=== PATIENT | female | born 1950 | race Two or more races ===

== ENCOUNTER 2025-01-18 11:22 | Inpatient (IN) | payer MEDICARE, MEDICAID, SELFPAY ==
[2025-01-18] VITALS (7 sets, daily range): BP systolic 93–107; BP diastolic 62–79; PULSE 79–102; RESP 15–18; TEMP 36.1–36.7; O2SAT 97–99; BMI 29.6
--- NOTE | 2025-01-18 11:58 | EKG_ITS ---
[facility] Test Date: 2025-01-18 Pat Name: BUTCH Careypartment: Room: - Gender: Female Tax Director: : 1950 Requested By: Nadege Clarke ([facility]) Suman Order Number: [id number] Reading MD: Nadege Clarke ([facility]) Suman Measurements Intervals [place] Rate: 90 P: TX: QRS: -69 QRSD: 203 T: 109 QT: 460 QTc: 564 Interpretive Statements ELECTRONIC VENTRICULAR PACEMAKER ABNORMAL RHYTHM ECG Compared to ECG 08/24/2024 08:41:24 Atrial fibrillation no longer present Aberrant conduction of supraventricular beat(s) no longer present Ventricular premature complex(es) no longer present T-wave abnormality no longer present Possible ischemia no longer present /store/S0/[id number]/ecg/[id number].pdf
--- NOTE | 2025-01-18 11:58 | XR_ITS ---
Examination: PA chest single view TECHNIQUE: Upright PA chest single view Exam date and time: January 10, 2025 at 12:39 PM Comparison August 24, 2024 INDICATIONS: Chronic hypertension diagnosis with weakness beginning one week ago FINDINGS: Moderate enlargement cardiac contour Moderate vascular congestion Subtle septal edema at the lung bases Cardiac leads satisfactory position IMPRESSION: Mild chronic heart failure
--- NOTE | 2025-01-18 11:58 | PD.EDRME ---
Rapid Medical Screening Exam RME Arrival date/time: 01/18/25 11:22 74-year-old female history of CHF, A-fib with RVR, presents to the emergency department with complaints of chest pain, palpitations worsening over 5 days. I have greeted and performed a focused initial assessment of this patient. Initial appropriate labs ordered at this time. A comprehensive ED assessment and evaluation of the patient and analysis of all test and completion of medical decision making process will be conducted by additional ED provider. Chief Complaint: Chest Pain Time Seen by Provider: 01/18/25 11:33
[2025-01-18 12:50] LABS: Basophils % (Auto) 0 % (0-2.5); Eosinophils % (Auto) 1 % (0-10); Hematocrit 37.4 % (36.0-46.0); Hemoglobin 11.9 g/dL (12.0-16.0); Immature Granulocytes % (Auto) 0 % (0-0); Immature Granulocytes Auto 0.01 Thou/mm3 (0.00-0.00); Lymphocytes # (Auto) 0.9 Thou/mm3 (1.0-4.8); Lymphocytes % (Auto) 25 % (10-50); Mean Corpuscular HGB Conc 31.8 g/dl (31.0-37.0); Mean Corpuscular Hemoglobin 30.2 pg (25.0-35.0); Mean Corpuscular Volume 95 fL (80-100); Monocytes # (Auto) 0.3 Thou/mm3 (0.0-0.8); Monocytes % (Auto) 9 % (0-12); Neutrophils # (Auto) 2.3 Thou/mm3 (1.8-7.7); Neutrophils % (Auto) 64 % (37-80); Nucleated Red Blood Cell % 0 /100 WBC (0); Platelet Count 90 Thou/mm3 (140-440); RDW Standard Deviation 48.3 fL (36.4-46.3); Red Blood Count 3.94 Miln/mm3 (4.00-5.20); White Blood Count 3.6 Thou/mm3 (3.6-11.0)
[2025-01-18 13:06] LABS: B-Type Natriuretic Peptide 1333 pg/mL (0-100)
[2025-01-18 13:07] LABS: INR 1.1 (0.9-1.3); Partial Thromboplastin Time 26.3 Seconds (22.0-36.0)
[2025-01-18 13:17] LABS: Alanine Aminotransferase 8 U/L (10-49); Albumin, Serum 3.9 gm/dL (3.4-4.8); Albumin/Globulin Ratio 1.4 (1.2-2.2); Alkaline Phosphatase 95 U/L (46-116); Anion Gap 8 (7-16); Aspartate Amino Transferase 21 U/L (0-34); BUN/Creatinine Ratio 22 Ratio (12-20); Blood Urea Nitrogen 20 mg/dL (9-23); Calcium (Corrected) 9.1 mg/dL (8.5-10.1); Carbon Dioxide 26.6 mMol/L (20.0-31.0); Chloride 106 mMol/L (98-107); Creatinine (Component) 0.9 mg/dL (0.6-1.3); Estimated Creatinine Clearance 50.2 mL/min (>60); Globulin 2.7 gm/dL (2.3-3.5); Glucose 135 mg/dL (74-106); Lipase 39 U/L (12-53); Osmolality,Calculated 285 (275-295); Potassium 3.9 mMol/L (3.4-5.1); Sodium 141 mMol/L (136-145); Total Protein 6.6 gm/dL (5.7-8.2); Troponin I < 0.020 ng/mL (0.0-0.045); eGFR > 60 See Note
[2025-01-18 14:11] LABS: Bilirubin,Total 1.5 mg/dL (0.3-1.2)
--- NOTE | 2025-01-18 19:01 | EDNOTE_ITS ---
ED Chest Pain RME/HPI General Chief Complaint: Chest Pain Stated Complaint: HEART BEATS FAST EATING/SLEEPING ; HAVE PACEMAKER Time Seen by Provider: 01/18/25 11:33 Arrival date/time: 01/18/25 11:22 Limitations: no limitations RME / HPI RME / HPI narrative: 01/18/25 11:22 74-year-old female history of CHF, A-fib with RVR, presents to the emergency department with complaints of chest pain, palpitations worsening over 5 days. I have greeted and performed a focused initial assessment of this patient. Initial appropriate labs ordered at this time. A comprehensive ED assessment and evaluation of the patient and analysis of all test and completion of medical decision making process will be conducted by additional ED provider. DR. SOMMER MAIN ED EVALUATION: A 74-year-old female patient with past medical history of HFrEF, sick sinus syndrome status post pacemaker placement on Eliquis, history of A-fib with RVR, CHF on amiodarone and Eliquis, chronic cough, who presents to the emergency department by car with her with worsening cough that is productive and shortness of breath and increased over the last 1 week. The patient states she saw her primary care physician and her wound/ostomy clinical nurse specialist on the and was told to stop all of her water pills. The patient cannot tell me why the water pills were stopped. She states that she told them that she was having progressively weaknes over the last 1 week. Patient denies chest pain but is more short of breath just walking across the room patient states she occasionally only took the water pill only when her legs swell and in the last week her legs have been more swollen. Patient also states that she has had increased palpitations with eating over the last few days. She feels like her heart is working more after she eats. Patient states that the cough is increased today and that is why she came to the emergency department. Otherwise she is taking her blood thinner. Related Data Home Medications ?Medication ?Instructions ?Recorded ?Confirmed bumetanide 2 mg tablet 2 mg PO QDAY #0 tabs 7 01/18/25 acetaminophen 500 mg tablet 500 mg PO Q8HR PRN pain 01/18/25 apixaban 5 mg tablet (Eliquis) 5 mg PO Q12H 01/18/25 0 01/18/25 benzonatate 200 mg capsule 200 mg PO BID 01/18/2512/23 digoxin 125 mcg (0.125 mg) tablet 0.125 mg PO DAILY 01/18/25 gabapentin 100 mg capsule 100 mg PO .QHS 01/18/2512/23 sacubitril 24 mg-valsartan 26 mg 1 tab PO BID 01/18/25 01/18/25 tablet (Entresto) Previous Rx's ?Medication ?Instructions ?Recorded albuterol sulfate 90 mcg/actuation 2 inh inhalation Q4 H PRN shortness 07/10/24 aerosol inhaler of breath or wheezing #8.5 g shelley Allergies Allergy/AdvReac Type Severity Reaction Status Date / Time Penicillins Allergy Severe Rash Verified 01/18/25 11:26 codeine AdvReac Severe Abdominal Verified 01/18/25 11:26 Pain Review of Systems Review of Systems Systems Reviewed: All systems reviewed, normal except as documented Past Medical History Past Medical History NEUROLOGIC: Negative Neurological Disorders or Seizures CARDIAC: Positive Cardiac Disorders, Atrial Fibrillation, Congestive Heart Failure, Edema and Varicose Veins; Negative Cellulitis or Hypertension RESPIRATORY: Positive Pneumonia; Negative Chronic Obstructive Pulmonary Disease (COPD), Asthma, Tuberculosis or Sleep Apnea GASTROINTESTINAL: Positive Gastrointestinal Disorders, Gall Bladder Disease, Colorectal Cancer, Hiatal Hernia and Obesity; Negative Hepatitis GENITOURINARY: Positive Inguinal Hernia; Negative Genitourinary Disorders or Renal Disease REPRODUCTIVE: Positive Previous Pregnancies MUSCULOSKELETAL: Positive Musculoskeletal Disorders; Negative Arthritis, Gout, Scoliosis, Fibromyalgia or Fractures ENT: Positive Cataracts ENDOCRINE: Negative Endocrine Disorders, Diabetes Mellitus Type 1 or Diabetes Mellitus Type 2 HEMATOLOGIC: Negative Blood Disorders or Sickle Cell Disease OTHER HISTORY: Positive Cancer and Colorectal Cancer; Negative Hospitalization, Autoimmune Disease, Shingles, Falls, Blood Transfusions, Blood Transfusion Reaction, Anesthesia Reactions, Chemotherapy, Radiation Therapy, MRSA, Chicken Pox, Measles or Mumps Family History FAMILY HISTORY: Positive Family Surgery; Negative Family Psychiatric Problems, Family Respiratory Disorders, Family Cardiac Disorders, Family Gastrointestinal Problems, Family Cancer or Family Anesthesia Reaction Surgical History SURGICAL: Positive Cardiac Surgery, Pacemaker, Abdominal Surgery, Tubal Ligation and Section Social History SMOKING STATUS: Never smoker SECOND HAND EXPOSURE: No SUBSTANCE USE: does not use ALCOHOL: Never ED Exam Narrative Physical exam: Patient sitting in the bed coughing in minimal distress. Patient with some audible wheezing. General Limitations: Present no limitations General appearance: Present alert Head Head exam: Present atraumatic Eye Eye exam: Present normal appearance ENT ENT exam: Present normal exam, normal oropharynx and mucous membranes moist Neck Neck exam: Present normal inspection, full ROM and trachea midline Chest Chest inspection: Present normal inspection and symmetric chest wall rise Respiratory Respiratory exam: Present other (Decreased breath sounds at the bases.) Cardiovascular Cardiovascular exam: Present regular rate, normal rhythm and normal heart sounds Abdominal Exam Abdominal exam: Present soft and normal bowel sounds Extremities Exam Extremities exam: Present normal inspection and full ROM (2+ pitting edema to the by lateral legs) Back Exam Back exam: Present normal inspection and full ROM Neurological Exam Neurological exam: Present alert, oriented X3 and CN II-XII intact Psychiatric Psychiatric exam: Present normal affect and normal mood Skin Skin exam: Present warm, dry, intact and normal color Course Course Course Narrative: Patient placed in the room. All labs Chest x-ray obtained for chief complaint of shortness of breath and cough. Please see HPI and review of systems further indications for chest x-ray Quality Measures none Orders Category Date Time Status [employer] Agent STAT Care 01/18/25 11:58 Active Continuous Pulse Oximetry ONCE Care 01/18/25 11:58 Completed EKG (ED ONLY) *Do not use* NOW Care 01/18/25 11:58 Completed Insert IV STAT Care 01/18/25 11:58 Active Miscellaneous Nursing Order X1 Care 01/18/25 18:59 Active EKG (ED Only) Stat Exams 01/18/25 11:58 Draft XR chest 1V portable Stat Exams 01/18/25 11:58 Completed B-Type Natriuretic Peptide Stat Lab 01/18/25 11:26 Completed CBC Stat Lab 01/18/25 11:26 Completed Comprehensive Metabolic Panel Stat Lab 01/18/25 11:26 Completed Lipase Stat Lab 01/18/25 11:26 Completed Magnesium Stat Lab 01/18/25 11:26 Completed Partial Thromboplastin Time Stat Lab 01/18/25 11:26 Completed Prothrombin Time with INR Stat Lab 01/18/25 11:26 Completed Troponin I Stat Lab 01/18/25 11:26 Completed Furosemide Inj [Lasix Inj] Med 01/18/25 18:58 Discontinued 40 mg IVP X1 ONE Oxygen Delivery NOW RT 01/18/25 11:58 Active Vital Signs Vital signs: Vital Signs Temperature 98.0 F 01/18/25 11:57 Pulse Rate 102 H 01/18/25 11:57 Respiratory Rate 17 01/18/25 11:57 Blood Pressure 97/66 01/18/25 11:57 Pulse Oximetry (%) 97 01/18/25 11:57 Oxygen Delivery Method Room Air 01/18/25 11:57 Procedures -ED EKG Interpretation #1: Date of EK01/18/25 Time of EK:04 Rate: 90 Interpretation: Interpreted by me Additional EKG comment: paced rhythm, rate 90, QTc 564 Chest Pain MDM Narrative MDM Narrative:: 74-year-old female with history of CHF, A-fib with RVR, on amiodarone and Eliquis, status post pacemaker in the past for sick sinus syndrome coming in with shortness of breath and cough and has stopped her medications Lasix and Bumex by her primary wound/ostomy clinical nurse specialist this last week. Patient is presenting with worsening shortness of breath. Following the emergency department the patient had a chest x-ray that shows some mild congestion. The patient's blood pressure was slightly low at 97/66 initially on repeat is 101/79. Hemoglobin is 11, white blood cell count is 3.6 and normal. This is interpreted and reviewed by me. BNP is elevated at 133. Troponin x 1 is negative and otherwise lipase is negative. Differential diagnosis includes CHF exacerbation, worsening CHF, underlying pneumonia, worsening diastolic or systolic function. Mary Ellen East am scribing for and in the presence of Dr. Sommer. Patient data External records reviewed:: [facility] previous records (Reviewed last ED visit dated 08/24/24, discharged with the following: Bronchitis) Clinical information provided by:: patient Social determinants that could affect healthcare access:: none Patient has the following chronic illnesses:: HFrEF, sick sinus syndrome status post pacemaker placement on Eliquis, history of A-fib with RVR, CHF on amiodarone and Eliquis, chronic cough How is presenting disease/condition affected by chronic disease/condition?: exacerbated by Evaluation data The following diagnostics were reviewed and interpreted by me:: lab results, radiology exam(s) and EKG tracing(s) Lab and/or radiology exams considered but not ordered:: none Interpretation Summary: See above under MDM narrative. RADIOLOGY Procedure(s): XR chest 1V portable Accession Number(s): [id number] cc: Hardik Gloria MD; Selvin Méndez MD; Tricia ([facility])Nadege~ Examination: PA chest single view TECHNIQUE: Upright PA chest single view Exam date and time: January 10, 2025 at 12:39 PM Comparison August 24, 2024 INDICATIONS: Chronic hypertension diagnosis with weakness beginning one week ago FINDINGS: Moderate enlargement cardiac contour Moderate vascular congestion Subtle septal edema at the lung bases Cardiac leads satisfactory position IMPRESSION: Mild chronic heart failure Dictated By: Selvin Méndez MD Medications / Prescriptions Medications or Prescriptions considered but not ordered:: none Medication administrations:: Medication Administration History Acetaminophen (Acetaminophen 325 Mg Tablet) 650 mg PO Q6H PRN PRN Reason: Fever >101.5 Stop: 02/17/25 19:30 Apixaban (Apixaban 2.5 Mg Tablet) 5 mg PO BID [facility] Stop: 02/17/25 20:59 Last Admin: 01/18/25 20:36 Dose: 5 mg Documented By: RUFINA Dapagliflozin (Dapagliflozin Propanediol 5 Mg Tablet) 5 mg PO QAM [facility] Stop: 02/18/25 08:59 Digoxin (Digoxin 0.125 Mg Tablet) 0.125 mg PO QDAY [facility] Stop: 02/18/25 08:59 Furosemide (Furosemide Inj 10 Mg/Ml Vial 2 Ml) 20 mg IVP BID [facility] Stop: 02/18/25 08:59 Gabapentin (Gabapentin 100 Mg Capsule) 100 mg PO HS [facility] Stop: 02/17/25 21:29 Sennosides (Senna Tablet) 1 tab PO QDAY [facility]; Protocol Stop: 02/18/25 08:59 Discontinued Medications Furosemide (Furosemide Inj 10 Mg/Ml 4ml Vial) 40 mg IVP X1 ONE Stop: 01/18/25 18:59 Last Admin: 01/18/25 20:01 Dose: Not Given Documented By: RUFINA Non-Admin Reason: Vital Signs Furosemide (Furosemide Inj 10 Mg/Ml Vial 2 Ml) 20 mg IVP QDAY [facility] Stop: 02/18/25 08:59 Furosemide (Furosemide Inj 10 Mg/Ml Vial 2 Ml) 20 mg IVP X1 ONE Stop: 01/18/25 20:19 Last Admin: 01/18/25 20:37 Dose: 20 mg Documented By: RUFINA Furosemide (Furosemide Inj 10 Mg/Ml Vial 2 Ml) 20 mg IVP X1 ONE Stop: 01/18/25 20:58 Last Admin: 01/18/25 21:37 Dose: 20 mg Documented By: RUFINA see above Consultations Consultation(s) initiated? (list below): Yes Consultation #1 (Physician, Specialty, Details): Discussed test HPI, PMHx, lab, radiology results and/or management with hospitalist. Will admit for further evaluation and management. Accepts patient for admission. Time: 19:30 Diagnosis Chest Pain Differential Diagnosis: atypical chest pain, costochondritis, chest pain and biliary colic Most likely diagnosis given after review of the tests above:: Acute on chronic Systolic Heart Failure Atrial Fibrillation Admission Indicated Admission indicated?: indicated Admission Request Was there a request for admission?: Yes Admission Attestation Admission request attestation: Discussed case with [] from Hospitalist service regarding admission. Discussed patients ED course, exam findings, labs, and radiology results. The Hospitalist [agrees,declines] to accept the patient for admission. Disposition Plan Disposition Plan: Admit Discharge Plan Plan Patient Disposition: Admit Acute Care w/in Hospital Problem List Clinical Impression: Acute on chronic systolic heart failure, Atrial fibrillation
--- NOTE | 2025-01-18 19:39 | PD.EVENT ---
Documentation for date of: 01/18/25 Event Note Event Note: A 74 y/o female presented to the ER with the chief complaint of palpitations after eating. The patient reported experiencing episodes of rapid heart beats that began five days ago, occurring specifically after meals. The most recent episode occurred after eating cereal, prompting her to contact her web designer developer, who advised her to come to the ER. She endorsed associated fatigue during these episodes but denied chest pain and dyspnea. She stated she stopped taking her diuretic four days ago due to weakness. She also reported a chronic cough ongoing for two years, previously requiring hospitalization and labeled as a chronic condition. She denied fever and noted no worsening of the cough. She has a history of intermittent lower extremity swelling that improves with diuretics but recurs every few days. The patient has a history of a-fib, severe systolic heart failure, with prior echocardiogram findings of a severely dilated LV, global hypokinesis, and EF 30?35%. She has a pacemaker placed several years ago and is scheduled for evaluation in January for possible battery replacement. She denies a history of HTN, DM, CAD, ID, smoking, alcohol, or drug use. She has had an angiogram in the past, which showed no coronary obstruction. No family history of heart disease was reported. Medications include Acetaminophen, Gabapentin, Benzonatate, Digoxin, Bumetanide, Entresto, and Eliquis. In the ER, vital signs recorded as temp 98.0 F, HR 102, RR 17, BP 97/66 mmHg, GCS 15. Lab revealed WBC 3.6 (L), Hb 11.9, Plt 90 (L), INR 1.1, Na 141, K 3.9, BUN 20, Cr 0.9, Glucose 135, Troponin <0.02, BNP 1333 (H). CXR showed mild chronic heart failure. EKG demonstrated pacemaker rhythm. She is going to be admitted for further treatment and evaluation. Acute on chronic Systolic Heart Failure (EF 30?35%) #Assessment: - Severe LV systolic dysfunction (EF 30?35%, global hypokinesis, severely dilated LV) - Chronic heart failure with intermittent LE edema, chronic cough, and recent noncompliance with diuretics - Hypotension (BP 97/66), elevated BNP (1333), mild CHF on CXR - On guideline-directed medical therapy (GDMT): Entresto, Digoxin, Bumetanide - Recent cessation of diuretic likely contributed to symptom exacerbation #Plan: - Repeat transthoracic echocardiogram to reassess EF and structural changes - Hold Entresto temporarily due to hypotension - Continue Digoxin for rate control and inotropic support - Start IV Furosemide - Initiate SGLT2 inhibitor, monitor for volume status and renal function - Monitor I/Os, daily weights, and electrolyte panels - Cardiology to evaluate for further optimization Atrial Fibrillation #Assessment: - History of AF with pacemaker in place, currently in paced rhythm - [id number] score = 3 (Age >75, female sex, heart failure) - No acute rhythm disturbance on EKG today #Plan: - Continue Apixaban for stroke prophylaxis - Continue Digoxin for rate control (already part of HF regimen) - Monitor telemetry for arrhythmic episodes
[2025-01-18] MEDS: APIXABAN 2.5 MG TABLET 5 MG PO (20:36)
[2025-01-18] MEDS: FUROSEMIDE INJ 10 MG/ML VIAL 2 ML 20 MG IVP ×2 (20:37→21:37)
--- NOTE | 2025-01-18 22:06 | ESHP_ITS ---
Documentation for date of: 01/18/25 HPI History of Present Illness Chief complaint: Palpitation History of present illness: HPI:A 74-year-old female patient with past history of A-fib on Eliquis, HFrEF EF 30 to 35% in 2022, sick sinus syndrome status post pacemaker placement, was brought to the ED due to palpitation and shortness of breath for the past 5 days. She reported also her symptoms associated with productive cough which produces white phlegm. Patient reported that recently her doctor recommended that she has to stop her water pills. After she stopped her water pill she reported worsening shortness of breath, orthopnea, paroxysmal nocturnal dyspnea associated with palpitation. Her palpitation worsened over the past 2 days and she felt dizzy which made her come to the ED. Patient denied any chest pain, denied any fever, chills, and denied any history of sick contact. Patient denied any lower extremity swelling, denied any urine tract symptoms. And review of other system patient reported that she has been having chronic constipation in which she has to use laxatives and also reported lower abdominal discomfort that is constant for the past 1 year. On questioning she reported that she had a colonoscopy 5 years ago and she said that it was normal. Her home medications include Tylenol as needed, albuterol, apixaban 5 mg twice daily, benzonatate, Bumex 2 mg p.o. daily, Digoxin 0.125 p.o. daily, Gabapentin 100 mg nightly, Entresto 1 tab twice daily On presentation her blood pressure was 97/66, pulse rate of 102, respiratory rate of 17, temperature of 98.0, O2 saturation 97. Hemoglobin 11.9, coagulation panel within normal limits, CMP showed T. bili of 1.5, BNP of 1333. Serum creatinine was within normal limit of 0.9, potassium 3.9, magnesium 2.0. Chest x-ray was positive for mild chronic heart failure PMH: As above Social hx: Alcohol: Denied Tobacco: Denied Illicit drugs: Denied Allergies: Penicillins, codeine Review of Systems Review of Systems Systems Reviewed: All systems reviewed, normal except as documented Exam Vital Signs Temp Pulse Resp BP Pulse Ox O2 Del Method 98.1 F 98 18 107/65 99 Room Air 01/18/25 18:48 01/18/25 21:37 01/18/25 18:48 01/18/25 21:37 01/18/25 18:48 01/18/25 18:48 Narrative Exam GEN: AOx3, able to speak full sentences, in semisitting position. HEENT: NC/AC, oral mucosa moist, neck supple. CVS: RRR, muffled S1 -S2 present, elevated JVD. RESP: Fine basal crepitations bilaterally. GI: Soft, mild abdominal discomfort on palpation in the hypogastric area, NBS. MSK: Able to move all 4 limbs, trace lower extremity edema. SKIN: Warm and dry. 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 Results: Labs 01/18/25 11:26 01/18/25 11:26 Labs: Short CBC 01/18/25 Range/Units 11:26 WBC 3.6 (3.6-11.0) Thou/mm3 Hgb 11.9 L (12.0-16.0) g/dL Hct 37.4 (36.0-46.0) % Plt Count 90 L (140-440) Thou/mm3 BMP 01/18/25 11:26 Sodium 141 Potassium 3.9 Chloride 106 Carbon Dioxide 26.6 BUN 20 Creatinine 0.9 Glucose 135 H Calcium 9.0 Cardiac Enzymes 01/18/25 Range/Units 11:26 Troponin I < 0.020 (0.0-0.045) ng/mL Liver Function 01/18/25 Range/Units 11:26 Total Bilirubin 1.5 H (0.3-1.2) mg/dL AST 21 (0-34) U/L ALT 8 L (10-49) U/L Alkaline Phosphatase 95 (46-116) U/L Albumin 3.9 (3.4-4.8) gm/dL Quality Measures Quality Measures VTE prophylaxis Advance care planning discussed with:: patient and child Medications Home Medications and Allergies Home Medications ?Medication ?Instructions ?Recorded ?Confirmed ?Type bumetanide 2 mg tablet 2 mg PO QDAY #0 tabs 7 01/18/25 History acetaminophen 500 mg tablet 500 mg PO Q8HR PRN pain 01/18/25 History apixaban 5 mg tablet (Eliquis) 5 mg PO Q12H 01/18/25 0 01/18/25 History benzonatate 200 mg capsule 200 mg PO BID 01/18/2512/23 History digoxin 125 mcg (0.125 mg) tablet 0.125 mg PO DAILY 01/18/25 History gabapentin 100 mg capsule 100 mg PO .QHS 01/18/2512/23 History sacubitril 24 mg-valsartan 26 mg 1 tab PO BID 01/18/25 01/18/25 History tablet (Entresto) Allergies Allergy/AdvReac Type Severity Reaction Status Date / Time Penicillins Allergy Severe Rash Verified 01/18/25 11:26 codeine AdvReac Severe Abdominal Verified 01/18/25 11:26 Pain Visit Medications Acetaminophen (Acetaminophen 325 Mg Tablet) 650 mg PO Q6H PRN PRN Reason: Fever >101.5 Stop: 02/17/25 19:30 Apixaban (Apixaban 2.5 Mg Tablet) 5 mg PO BID [facility] Stop: 02/17/25 20:59 Last Admin: 01/18/25 20:36 Dose: 5 mg Dapagliflozin (Dapagliflozin Propanediol 5 Mg Tablet) [facility] Stop: 02/18/25 08:59 Digoxin (Digoxin 0.125 Mg Tablet) 0.125 mg PO QDAY [facility] Stop: 02/18/25 08:59 Furosemide (Furosemide Inj 10 Mg/Ml Vial 2 Ml) 20 mg IVP BID [facility] Stop: 02/18/25 08:59 Gabapentin (Gabapentin 100 Mg Capsule) 100 mg PO HS [facility] Stop: 02/17/25 21:29 Sennosides (Senna Tablet) 1 tab PO QDAY [facility]; Protocol Stop: 02/18/25 08:59 Discontinued Medications Furosemide (Furosemide Inj 10 Mg/Ml 4ml Vial) 40 mg IVP X1 ONE Stop: 01/18/25 18:59 Last Admin: 01/18/25 20:01 Dose: Not Given Furosemide (Furosemide Inj 10 Mg/Ml Vial 2 Ml) 20 mg IVP QDAY [facility] Stop: 02/18/25 08:59 Furosemide (Furosemide Inj 10 Mg/Ml Vial 2 Ml) 20 mg IVP X1 ONE Stop: 01/18/25 20:19 Last Admin: 01/18/25 20:37 Dose: 20 mg Furosemide (Furosemide Inj 10 Mg/Ml Vial 2 Ml) 20 mg IVP X1 ONE Stop: 01/18/25 20:58 Last Admin: 03/28/25 21:37 Dose: 20 mg Assessment & Plan Plan Summary: A 74-year-old female patient with past history of A-fib on Eliquis, HFrEF EF 30 to 35% in 2022, sick sinus syndrome status post pacemaker placement, was brought to the ED due to palpitation and shortness of breath for the past 5 days. Patient was admitted for CHF exacerbation workup. #Acute HFrEF exacerbation #History of sick sinus syndrome status post pacemaker placement #History of A-fib with RVR Patient recently stopped her diuretics as per her PCP recommendations. She does not know the reason behind the stopping the medication. She mentions that she has orthopnea and cannot lay flat. And evaluation patient was found to have heart rate of 105, blood pressure of 97/75. Examination showed elevated JVD. Patient was unable to lay flat because of the shortness of breath. Last echo from 2022 showed LV severely dilated. Severe systolic dysfunctio. Global hypokinesis wall motion. Estimated EF 30-35% BNP today is 1333 Plan ? Admit patient to telemetry ? Start the patient on Lasix 40 mg IV daily ? Consider consulting cardiology ? Strict in and out ? Fluid restriction to 1500 mL/day ? Continue to monitor patient's blood pressure as it in the soft side at this time ? Consider resuming goal-directed medical therapy of the CHF including Entresto ? Sent for echocardiogram ? Resume home medication Eliquis 5 mg p.o. daily ? Resume home medication digoxin 0.125 mg p.o. daily #Hyperbilirubinemia Total bilirubin was found to be 1.5. Hemoglobin 11.9 which is borderline normal. Liver enzymes are within normal limits, alkaline phosphatase within normal limits also. Most likely secondary to liver congestion Plan ? Daily monitoring Hospital Maintenance: FEN: Cardiac diet DVT ppx: Eliquis GI ppx: Protonix IV lines: PIV Park: None Code status: Full code Dispo: Telemetry Patient's plan and care discussed with my attending, Dr. Jeremi Mcfarland MD Internal Medicine PGY-2 Attending Provider Attestation/Addendum Pt was evaluated and plan formulated together with the housestaff team. I have reviewed the residents note above and agree with most of its content. Please refer to the residents note for additional details.
[2025-01-18] MEDS: GABAPENTIN 100 MG CAPSULE PO (22:31)
[2025-01-19] VITALS (14 sets, daily range): BP systolic 81–105; BP diastolic 52–74; PULSE 56–127; RESP 17–93; TEMP 36.2–36.8; O2SAT 95–96; BMI 29.3
--- NOTE | 2025-01-19 | XR_ITS ---
Examination: Abdomen sonogram, complete Date and time of exam: January 19, 2025 at 0155 hours INDICATIONS: Hematuria on laboratory examination today. Technique: Multiple real-time grayscale transabdominal sonographic images of the abdomen have been obtained. Findings: Absent gallbladder Common bile duct 0.9 cm no stones Pancreatic head 2.7 cm Aorta nonenlarged Liver 14.3 cm fatty infiltration irregular contour Normal hepatopedal portal venous on Patent IVC Right kidney 10.6 cm cortex 2.3 cm Left kidney 10.3 cm cortex 1.5 cm Moderate bilateral renal parenchymal scar formation No renal calculi or solid renal mass lesion Spleen 7.8 cm IMPRESSION: Moderate bilateral renal parenchymal scar formation No renal calculi, no solid renal mass lesion, no hydronephrosis
--- NOTE | 2025-01-19 03:52 | PRELIM_ITS ---
Ultrasound Abdomen with Doppler and wave Doppler spectral analysis. January 19, 2025 0155 hours Clinical history: Hematuria Technique: Grayscale and color flow images of the abdomen are provided. Hepatic and portal veins were also imaged with color flow images. Comparison: None available at the time of this report. Findings: The liver demonstrates increased echogenicity. Mild irregular liver margins. No intrahepatic biliary ductal dilatation. Status post cholecystectomy. The common bile duct is dilated in caliber at 9.3 mm. No free fluid is demonstrated on the submitted images. The pancreas is unremarkable to the extent visualized. The right kidney measures 10.6 cm. The left kidney measures 10.3 cm. There is no hydronephrosis and the corticomedullary differentiation is maintained. The spleen is normal measuring 7.8 cm in length. The abdominal aorta and inferior vena cava to the extent visualized are within normal limits. The portal vein is patent with hepatopetal flow and normal wave Doppler spectral analysis. The hepatic veins are patent with normal wave Doppler spectral analysis. The inferior vena cava is patent with normal wave Doppler spectral analysis. Impression: Dilated CBD in status post cholecystectomy, probably functional. If choledocholithiasis is clinically suspected consider correlation with right upper quadrant ultrasound. Liver steatosis and possible cirrhosis. Report Electronically Signed By: Andrea Urias 01/19/2025 3:51:21 AM [EST]
[2025-01-19 06:03] LABS: Basophils % (Auto) 0 % (0-2.5); Eosinophils # (Auto) 0.1 Thou/mm3 (0.0-0.5); Eosinophils % (Auto) 1 % (0-10); Hematocrit 35.2 % (36.0-46.0); Hemoglobin 11.9 g/dL (12.0-16.0); Immature Granulocytes % (Auto) 0 % (0-0); Immature Granulocytes Auto 0.01 Thou/mm3 (0.00-0.00); Lymphocytes # (Auto) 1.3 Thou/mm3 (1.0-4.8); Lymphocytes % (Auto) 25 % (10-50); Mean Corpuscular HGB Conc 33.8 g/dl (31.0-37.0); Mean Corpuscular Hemoglobin 30.4 pg (25.0-35.0); Mean Corpuscular Volume 90 fL (80-100); Monocytes # (Auto) 0.5 Thou/mm3 (0.0-0.8); Monocytes % (Auto) 10 % (0-12); Neutrophils # (Auto) 3.4 Thou/mm3 (1.8-7.7); Neutrophils % (Auto) 64 % (37-80); Nucleated Red Blood Cell % 0 /100 WBC (0); Platelet Count 100 Thou/mm3 (140-440); RDW Standard Deviation 46.1 fL (36.4-46.3); Red Blood Count 3.91 Miln/mm3 (4.00-5.20); White Blood Count 5.3 Thou/mm3 (3.6-11.0)
[2025-01-19 06:31] LABS: Alanine Aminotransferase 8 U/L (10-49); Albumin, Serum 3.8 gm/dL (3.4-4.8); Albumin/Globulin Ratio 1.4 (1.2-2.2); Alkaline Phosphatase 102 U/L (46-116); Anion Gap 8 (7-16); Aspartate Amino Transferase 24 U/L (0-34); BUN/Creatinine Ratio 25 Ratio (12-20); Bilirubin,Total 1.2 mg/dL (0.3-1.2); Blood Urea Nitrogen 20 mg/dL (9-23); Calcium 9.2 mg/dL (8.3-10.6); Calcium (Corrected) 9.4 mg/dL (8.5-10.1); Carbon Dioxide 28.4 mMol/L (20.0-31.0); Chloride 106 mMol/L (98-107); Creatinine (Component) 0.8 mg/dL (0.6-1.3); Estimated Creatinine Clearance 56.5 mL/min (>60); Globulin 2.7 gm/dL (2.3-3.5); Glucose 89 mg/dL (74-106); Osmolality,Calculated 284 (275-295); Phosphorous 5.2 mg/dL (2.4-5.1); Potassium 3.6 mMol/L (3.4-5.1); Sodium 142 mMol/L (136-145); Total Protein 6.5 gm/dL (5.7-8.2); eGFR > 60 See Note
[2025-01-19] MEDS: ACETAMINOPHEN 325 MG TABLET 650 MG PO ×2 (06:40→16:36)
[2025-01-19] MEDS: DIGOXIN 0.125 MG TABLET PO ×2 (09:13→09:16)
[2025-01-19] MEDS: DAPAGLIFLOZIN PROPANEDIOL 5 MG TABLET PO (09:13)
[2025-01-19] MEDS: SENNA TABLET 1 TAB PO (09:15)
[2025-01-19] MEDS: FUROSEMIDE INJ 10 MG/ML VIAL 2 ML 20 MG IVP (09:15)
[2025-01-19] MEDS: APIXABAN 2.5 MG TABLET 5 MG PO ×2 (09:15→20:30)
--- NOTE | 2025-01-19 12:05 | PD.IMCONS ---
HPI Data of Consult Requesting Physician: Filemon Blood MD Primary Care Provider: Hardik Gloria MD Consult Narrative History of present illness: This is a 74-year-old female patient with past history of A-fib on Eliquis, HFrEF EF 30 to 35% in 2022, sick sinus syndrome status post pacemaker placement, pt was admitted with cough and sputum no chest pain /c/o of sob cc:: cc: Filemon Blodo MD Meds Home Medications and Allergies Home Medications ?Medication ?Instructions ?Recorded ?Confirmed ?Type bumetanide 2 mg tablet 2 mg PO QDAY #0 tabs 03/06/17 01/18/25 History acetaminophen 500 mg tablet 500 mg PO Q8HR PRN pain 01/18/25 01/18/25 History apixaban 5 mg tablet (Eliquis) 5 mg PO Q12H 01/18/25 01/18/25 History benzonatate 200 mg capsule 200 mg PO BID 01/18/25 01/18/25 History digoxin 125 mcg (0.125 mg) tablet 0.125 mg PO DAILY 01/18/25 01/18/25 History gabapentin 100 mg capsule 100 mg PO .QHS 01/18/25 01/18/25 History sacubitril 24 mg-valsartan 26 mg 1 tab PO BID 01/18/25 01/18/25 History tablet (Entresto) Allergies Allergy/AdvReac Type Severity Reaction Status Date / Time Penicillins Allergy Severe Rash Verified 01/18/25 11:26 codeine AdvReac Severe Abdominal Verified 01/18/25 11:26 Pain Exam Vital Signs Temp Pulse Resp BP Pulse Ox O2 Del Method 98.1 F 95 19 100/64 95 Room Air 01/19/25 09:17 01/19/25 09:16 01/19/25 08:00 01/19/25 09:16 01/19/25 08:00 01/19/25 08:00 Routine HEENT Exam Head: Present normocephalic and atraumatic Eye: Present EOMI and PERRL ENT: Present mucous membranes moist Routine Neck Exam Neck: Present supple and trachea midline Routine Respiratory Exam Respiratory: Present chest non-tender, lungs clear, normal breath sounds and no resp distress Routine Cardiovascular Exam Cardiovascular: Present RRR Routine Abdominal Exam Abdominal: Present soft and normoactive bowel sounds Routine Extremities Exam Extremities: Present full ROM Routine Skin Exam Skin: Present intact, dry and warm Routine Neurological Exam Neurological: Present alert, oriented X3 and CN II-XII intact Routine Psychiatric Exam Psychiatric: Present normal affect and normal thought process Results Labs 01/19/25 04:36 01/19/25 04:36 Labs: Short CBC 01/18/25 01/19/25 Range/Units 11:26 04:36 WBC 3.6 5.3 D (3.6-11.0) Thou/mm3 Hgb 11.9 L 11.9 L (12.0-16.0) g/dL Hct 37.4 35.2 L (36.0-46.0) % Plt Count 90 L 100 L (140-440) Thou/mm3 BMP 01/18/25 01/19/25 11:26 04:36 Sodium 141 142 Potassium 3.9 3.6 Chloride 106 106 Carbon Dioxide 26.6 28.4 BUN 20 20 Creatinine 0.9 0.8 Glucose 135 H 89 Calcium 9.0 9.2 Cardiac Enzymes 01/18/25 01/19/25 Range/Units 11:26 04:36 Troponin I < 0.020 0.020 (0.0-0.045) ng/mL Liver Function 01/18/25 01/19/25 Range/Units 11:26 04:36 Total Bilirubin 1.5 H 1.2 (0.3-1.2) mg/dL AST 21 24 (0-34) U/L ALT 8 L 8 L (10-49) U/L Alkaline Phosphatase 95 102 (46-116) U/L Albumin 3.9 3.8 (3.4-4.8) gm/dL Assessment and Plan Assessment and plan (1) Atrial fibrillation: Status: Acute (2) Acute on chronic systolic heart failure: Status: Acute (3) Acute exacerbation of congestive heart failure: Status: Acute (4) Acute upper respiratory infection: Status: Acute (5) Acute exacerbation of CHF (congestive heart failure): Status: Acute Additional Assessment & Plan Additional Plan: resume home meds conitinue anticoagulation
--- NOTE | 2025-01-19 13:13 | ESPR_ITS ---
<Statement entered by Shun Soto MD - 01/19/25 17:12> I have discussed and was present for the essential components of the history, physical examination, diagnosis, and treatment plan with the resident. I agree with the patient's care as documented by the resident and amended herein by me. Shun Soto MD FACP. Documentation for date of: 01/19/25 Subjective Subjective Interval history: Patient seen and examined. Admitted overnight. Complained of palpitations overnight. Denies any other complaints. Exam Vital Signs Temp Pulse Resp BP Pulse Ox O2 Del Method 98.2 F 116 H 20 81/62 L 96 Room Air 01/19/25 12:00 01/19/25 12:00 01/19/25 12:00 01/19/25 12:00 01/19/25 12:00 01/19/25 12:00 Narrative Exam Constitutional: AOx3, able to speak full sentences HEENT: NC/AT, PERRLA, oral mucosa moist, neck supple CVS: RRR, S1-S2 present, no murmurs RESP: CTAB GI: non distended, non tender to palpation, NBS MSK: full ROM, 2+ BLE peripheral edema, peripheral pulses present Skin: warm and dry, no rashes Neuro: backroom associate II-XII grossly intact. Sensation grossly intact. Objective Labs 01/19/25 04:36 01/19/25 04:36 Labs: Laboratory Results - last 24 hr 01/18/25 01/19/25 11:26 04:36 WBC 5.3 D RBC 3.91 L Hgb 11.9 L Hct 35.2 L MCV 90 MCH 30.4 MCHC 33.8 RDW Std Deviation 46.1 Plt Count 100 L Neut % (Auto) 64 Lymph % (Auto) 25 Harper % (Auto) 10 Eos % (Auto) 1 Baso % (Auto) 0 Neut # (Auto) 3.4 Lymph # (Auto) 1.3 Harper # (Auto) 0.5 Eos # (Auto) 0.1 Baso # (Auto) 0.0 Immature Gran # (Auto) 0.01 H Absolute Nucleated RBC 0.00 Immature Gran % 0 Nucleated RBC % 0 Sodium 141 142 Potassium 3.9 3.6 Chloride 106 106 Carbon Dioxide 26.6 28.4 Anion Gap 8 8 BUN 20 20 Creatinine 0.9 0.8 Estim Creat Clear Calc 50.2 L 56.5 L eGFR > 60 > 60 BUN/Creatinine Ratio 22 H 25 H Glucose 135 H 89 Calculated Osmolality 285 284 Calcium 9.0 9.2 Corrected Calcium 9.1 9.4 Phosphorus 5.2 H Magnesium 2.0 Total Bilirubin 1.5 H 1.2 AST 21 24 ALT 8 L 8 L Alkaline Phosphatase 95 102 Troponin I < 0.020 0.020 B-Natriuretic Peptide 1333 H* Total Protein 6.6 6.5 Albumin 3.9 3.8 Globulin 2.7 2.7 Albumin/Globulin Ratio 1.4 1.4 Lipase 39 Quality Measures Quality Measures VTE prophylaxis Advance care planning discussed with:: patient Assessment & Plan Assessment Current Active Medications: Generic Name Dose Route Start Last Admin Trade Name Freq PRN Reason Stop Dose Admin Acetaminophen 650 mg 01/18/25 19:31 01/19/25 06:40 Acetaminophen 325 Mg Tablet PO 02/17/25 19:30 650 mg Q6H PRN Administration Fever >101.5 Apixaban 5 mg 01/18/25 21:00 01/19/25 09:15 Apixaban 2.5 Mg Tablet PO 02/17/25 20:59 5 mg BID TEAGAN Administration Dapagliflozin 5 mg 01/19/25 09:00 01/19/25 09:13 Dapagliflozin Propanediol 5 Mg Tablet PO 02/18/25 08:59 5 mg QAM TEAGAN Administration Digoxin 0.125 mg 01/19/25 09:00 01/19/25 09:16 Digoxin 0.125 Mg Tablet PO 02/18/25 08:59 0.125 mg QDAY TEAGAN Administration Furosemide 20 mg 01/19/25 09:00 01/19/25 09:15 Furosemide Inj 10 Mg/Ml Vial 2 Ml IVP 02/18/25 08:59 20 mg BID TEAGAN Administration Gabapentin 100 mg 01/18/25 21:30 01/18/25 22:31 Gabapentin 100 Mg Capsule PO 02/17/25 21:29 100 mg HS TEAGAN Administration Pharmacy Consult 1 each 01/19/25 09:00 Pharmacy To Consult Pneumovacc XX 02/18/25 08:59 PRN PRN CONSULT Pneumococcal Polyvalent Vaccine 0.5 ml 01/22/25 09:30 Pneumoc 20-Caryn Conj-Dip Crm/Pf 0.5 Ml Syringe IMi 01/22/25 09:31 .ONCE ONE Sennosides 1 tab 01/19/25 09:00 01/19/25 09:15 Senna Tablet PO 02/18/25 08:59 1 tab QDAY TEAGAN Administration Protocol Plan Summary: A 74-year-old female patient with past history of A-fib on Eliquis, HFrEF EF 30 to 35% in 2022, sick sinus syndrome status post pacemaker placement, was brought to the ED due to palpitation and shortness of breath for the past 5 days. Patient was admitted for CHF exacerbation workup. #Acute HFrEF exacerbation #Palpitations #History of sick sinus syndrome status post pacemaker placement #History of A-fib with RVR Assessment: Patient recently stopped her diuretics as per her PCP recommendations. Etiology of the palpitations are likely due to her SSS, patient also revealed that she needed her pacement replaced due to possible low battery life next month. patient was found to have heart rate of 105, blood pressure of 97/75. Examination showed elevated JVD. Patient was unable to lay flat because of the shortness of breath. Last echo from 2022 showed LV severely dilated. Severe systolic dysfunctio. Global hypokinesis wall motion. Estimated EF 30-35% BNP today is 1333 Plan: ? Admit patient to telemetry ? Start the patient on Lasix 40 mg IV daily ? Strict in and out ? Fluid restriction to 1500 mL/day ? pending echocardiogram ? Resume home medication Eliquis 5 mg p.o. daily ? Resume home medication digoxin 0.125 mg p.o. daily - Cardiology consulted, appreciate recommendations #Hyperbilirubinemia Total bilirubin was found to be 1.5. Hemoglobin 11.9 which is borderline normal. Liver enzymes are within normal limits, alkaline phosphatase within normal limits also. Most likely secondary to liver congestion Plan ? Daily monitoring Hospital Maintenance: FEN: Cardiac diet DVT ppx: Eliquis GI ppx: Protonix IV lines: PIV Park: None Code status: Full code Dispo: Telemetry - Patient's care was discussed with my attending physician, Dr. Brittany Horan MD Internal Medicine PGY-3
[2025-01-19] MEDS: GABAPENTIN 100 MG CAPSULE PO (20:30)
[2025-01-19] MEDS: ACETAMINOPHEN 325 MG TABLET PO (21:51)
[2025-01-19] MEDS: LIDOCAINE 5% 1 PATCH TOP (21:51)
[2025-01-20] VITALS (11 sets, daily range): BP systolic 85–105; BP diastolic 51–76; PULSE 76–99; RESP 12–97; TEMP 36.2–37.1; O2SAT 94–97; BMI 28.8
[2025-01-20] MEDS: HYDROcodone/APAP 5/325 TABLET 1 TAB PO (00:50)
[2025-01-20 06:12] LABS: Basophils % (Auto) 1 % (0-2.5); Eosinophils # (Auto) 0.1 Thou/mm3 (0.0-0.5); Eosinophils % (Auto) 2 % (0-10); Hematocrit 35.2 % (36.0-46.0); Immature Granulocytes % (Auto) 0 % (0-0); Immature Granulocytes Auto 0.01 Thou/mm3 (0.00-0.00); Lymphocytes # (Auto) 1.3 Thou/mm3 (1.0-4.8); Lymphocytes % (Auto) 37 % (10-50); Mean Corpuscular HGB Conc 34.1 g/dl (31.0-37.0); Mean Corpuscular Hemoglobin 30.5 pg (25.0-35.0); Mean Corpuscular Volume 89 fL (80-100); Monocytes # (Auto) 0.4 Thou/mm3 (0.0-0.8); Monocytes % (Auto) 12 % (0-12); Neutrophils # (Auto) 1.7 Thou/mm3 (1.8-7.7); Neutrophils % (Auto) 49 % (37-80); Nucleated Red Blood Cell % 0 /100 WBC (0); Platelet Count 94 Thou/mm3 (140-440); RDW Standard Deviation 44.6 fL (36.4-46.3); Red Blood Count 3.94 Miln/mm3 (4.00-5.20); White Blood Count 3.4 Thou/mm3 (3.6-11.0)
[2025-01-20 06:50] LABS: Albumin, Serum 3.7 gm/dL (3.4-4.8); Albumin/Globulin Ratio 1.5 (1.2-2.2); Alkaline Phosphatase 86 U/L (46-116); Anion Gap 8 (7-16); Aspartate Amino Transferase 25 U/L (0-34); BUN/Creatinine Ratio 23 Ratio (12-20); Bilirubin,Total 1.7 mg/dL (0.3-1.2); Blood Urea Nitrogen 18 mg/dL (9-23); Calcium 8.8 mg/dL (8.3-10.6); Chloride 105 mMol/L (98-107); Creatinine (Component) 0.8 mg/dL (0.6-1.3); Estimated Creatinine Clearance 55.7 mL/min (>60); Globulin 2.5 gm/dL (2.3-3.5); Glucose 87 mg/dL (74-106); Osmolality,Calculated 282 (275-295); Phosphorous 5.5 mg/dL (2.4-5.1); Potassium 3.6 mMol/L (3.4-5.1); Sodium 141 mMol/L (136-145); Total Protein 6.2 gm/dL (5.7-8.2); eGFR > 60 See Note
[2025-01-20 06:55] LABS: Alanine Aminotransferase 8 U/L (10-49)
[2025-01-20] MEDS: DIGOXIN 0.125 MG TABLET PO (08:41)
[2025-01-20] MEDS: SENNA TABLET 1 TAB PO (08:41)
[2025-01-20] MEDS: APIXABAN 2.5 MG TABLET 5 MG PO ×2 (08:41→20:44)
[2025-01-20] MEDS: DAPAGLIFLOZIN PROPANEDIOL 5 MG TABLET PO (08:42)
--- NOTE | 2025-01-20 11:22 | PC.NURSE ---
BP 85/54, Pt not feeling dizzy, slight headache. Dr Abdi notified.
--- NOTE | 2025-01-20 12:57 | PC.SS ---
This is 74-year-old, , female who presented to the ED due to suffering from rapid heartbeats. Patient appeared alert and oriented to self, place and situation. Patient was pleasant, her mood and behavior were ordinary. Patient's thought process was logical. Patient verified her address and phone number. Patient reported that she is independent at home, no DME use. Patient assigned her , Antelmo Valdez as her emergency contact. Patient's PCP is [facility], her next appointment is 03/02/2025. When medically clear, patient will return home, no transportation is needed.
--- NOTE | 2025-01-20 13:13 | ESPR_ITS ---
<Statement entered by Shun Soto MD - 01/21/25 10:29> I have discussed and was present for the essential components of the history, physical examination, diagnosis, and treatment plan with the resident. I agree with the patient's care as documented by the resident and amended herein by me. Shun Soto MD FACP. Documentation for date of: 01/20/25 Subjective Subjective Interval history: No overnight events. Patient seen examined at bedside, resting comfortably. Patient denies palpitations, chest pain, shortness of breath, fevers, chills. Patient does complain of back spasms, added cyclobenzaprine. Pending cardiology recommendations. Holding Lasix due to soft blood pressure. Exam Vital Signs Temp Pulse Resp BP Pulse Ox O2 Del Method 98.7 F 90 16 103/73 97 Room Air 01/20/25 11:57 01/20/25 11:57 01/20/25 11:57 01/20/25 12:27 01/20/25 11:57 01/20/25 11:57 Narrative Exam PE: Gen: Well-developed and well-nourished. HEENT: NCAT, PERRLA, EOMI, MMM, anicteric conjunctivae. CVS: normal S1 and S2. RRR. No M/R/G. Resp: CTA B/L. No rhonchi, rales, crackles or wheezing. Abd: soft, non-tender, non-distended. MSK: Good ROM in BUE & BLE. No rash. Bilateral lower extremity edema. Neuro: CN II-XII grossly intact. Strength 5/5 in BUE & BLE. Alert and oriented x3. Psych: appropriate mood and affect. Objective Labs 01/20/25 05:34 01/20/25 05:34 Labs: Laboratory Results - last 24 hr 01/19/25 01/20/25 16:00 05:34 WBC 3.4 L RBC 3.94 L Hgb 12.0 Hct 35.2 L MCV 89 MCH 30.5 MCHC 34.1 RDW Std Deviation 44.6 Plt Count 94 L Neut % (Auto) 49 Lymph % (Auto) 37 [place] % (Auto) 12 Eos % (Auto) 2 Baso % (Auto) 1 Neut # (Auto) 1.7 L Lymph # (Auto) 1.3 [place] # (Auto) 0.4 Eos # (Auto) 0.1 Baso # (Auto) 0.0 Immature Gran # (Auto) 0.01 H Absolute Nucleated RBC 0.00 Immature Gran % 0 Nucleated RBC % 0 Sodium 141 Potassium 3.6 Chloride 105 Carbon Dioxide 28.0 Anion Gap 8 BUN 18 Creatinine 0.8 Estim Creat Clear Calc 55.7 L eGFR > 60 BUN/Creatinine Ratio 23 H Glucose 87 Calculated Osmolality 282 Lactic Acid 1.0 Calcium 8.8 Corrected Calcium 9.0 Phosphorus 5.5 H Total Bilirubin 1.7 H D AST 25 ALT 8 L Alkaline Phosphatase 86 Total Protein 6.2 Albumin 3.7 Globulin 2.5 Albumin/Globulin Ratio 1.5 Quality Measures Quality Measures VTE prophylaxis Advance care planning discussed with:: patient Assessment & Plan Assessment Current Active Medications: Generic Name Dose Route Start Last Admin Trade Name Freq PRN Reason Stop Dose Admin Acetaminophen 650 mg 01/18/25 19:31 01/19/25 16:36 Acetaminophen 325 Mg Tablet PO 02/17/25 19:30 650 mg Q6H PRN Administration Fever >101.5 Apixaban 5 mg 01/18/25 21:00 01/20/25 08:41 Apixaban 2.5 Mg Tablet PO 02/17/25 20:59 5 mg BID TEAGAN Administration Cyclobenzaprine HCl 5 mg 01/20/25 10:58 Cyclobenzaprine 5 Mg Tablet PO 02/19/25 10:57 TID PRN MUSCLE SPASMS Dapagliflozin 5 mg 01/19/25 09:00 01/20/25 08:42 Dapagliflozin Propanediol 5 Mg Tablet PO 02/18/25 08:59 5 mg QAM TEAGAN Administration Furosemide 20 mg 01/19/25 09:00 01/19/25 09:15 Furosemide Inj 10 Mg/Ml Vial 2 Ml IVP 02/18/25 08:59 20 mg BID TEAGAN Administration Gabapentin 100 mg 01/18/25 21:30 01/19/25 20:30 Gabapentin 100 Mg Capsule PO 02/17/25 21:29 100 mg HS TEAGAN Administration Pharmacy Consult 1 each 01/19/25 09:00 Pharmacy To Consult Pneumovacc XX 02/18/25 08:59 PRN PRN CONSULT Pneumococcal Polyvalent Vaccine 0.5 ml 01/22/25 09:30 Pneumoc 20-Caryn Conj-Dip Crm/Pf 0.5 Ml Syringe IMi 01/22/25 09:31 .ONCE ONE Sennosides 1 tab 01/19/25 09:00 01/20/25 08:41 Senna Tablet PO 02/18/25 08:59 1 tab QDAY TEAGAN Administration Protocol Plan Summary: A 74-year-old female patient with past history of A-fib on Eliquis, HFrEF EF 30 to 35% in 2022, sick sinus syndrome status post pacemaker placement, was brought to the ED due to palpitation and shortness of breath for the past 5 days. Patient was admitted for CHF exacerbation workup. #Acute HFrEF exacerbation #Palpitations #History of sick sinus syndrome status post pacemaker placement #History of A-fib with RVR Patient recently stopped her diuretics as per her PCP recommendations. Etiology of the palpitations are likely due to her SSS, patient also revealed that she needed her pacement replaced due to possible low battery life next month. patient was found to have heart rate of 105, blood pressure of 97/75. Examination showed elevated JVD. Patient was unable to lay flat because of the shortness of breath. Last echo from 2022 showed LV severely dilated. Severe systolic dysfunctio. Global hypokinesis wall motion. Estimated EF 30-35% BNP today is 1333. Patient started on IV Lasix. Lasix held due to soft blood pressure. -Admit patient to telemetry -Strict in and out -Fluid restriction to 1500 mL/day -pending echocardiogram -Resume home medication Eliquis 5 mg p.o. daily -Resume home medication digoxin 0.125 mg p.o. daily -Cardiology consulted, appreciate recommendations #Hyperbilirubinemia Total bilirubin was found to be 1.5. Hemoglobin 11.9 which is borderline normal. Liver enzymes are within normal limits, alkaline phosphatase within normal limits also. Most likely secondary to liver congestion -Daily monitoring FEN: Cardiac diet DVT ppx: Eliquis GI ppx: Protonix IV lines: PIV Code status: Full code Dispo: Telemetry Plan of care discussed with attending Dr. Soto. Minesh Smith MD PGY?1
[2025-01-20] MEDS: GABAPENTIN 100 MG CAPSULE PO (20:44)
[2025-01-21] VITALS (13 sets, daily range): BP systolic 85–100; BP diastolic 49–79; PULSE 88–117; RESP 9–100; TEMP 35.9–36.9; O2SAT 94–98; BMI 29.1
[2025-01-21] MEDS: CYCLObenzaPRINE 5 MG TABLET PO (00:22)
[2025-01-21] MEDS: ACETAMINOPHEN 325 MG TABLET 650 MG PO (02:05)
[2025-01-21] MEDS: HYDROcodone/APAP 5/325 TABLET 1 TAB PO ×2 (04:03→23:43)
[2025-01-21 06:21] LABS: Basophils % (Auto) 1 % (0-2.5); Eosinophils # (Auto) 0.1 Thou/mm3 (0.0-0.5); Eosinophils % (Auto) 1 % (0-10); Hemoglobin 12.2 g/dL (12.0-16.0); Immature Granulocytes % (Auto) 0 % (0-0); Immature Granulocytes Auto 0.01 Thou/mm3 (0.00-0.00); Lymphocytes # (Auto) 1.5 Thou/mm3 (1.0-4.8); Lymphocytes % (Auto) 36 % (10-50); Mean Corpuscular Hemoglobin 30.6 pg (25.0-35.0); Mean Corpuscular Volume 93 fL (80-100); Monocytes # (Auto) 0.4 Thou/mm3 (0.0-0.8); Monocytes % (Auto) 10 % (0-12); Neutrophils # (Auto) 2.2 Thou/mm3 (1.8-7.7); Neutrophils % (Auto) 52 % (37-80); Nucleated Red Blood Cell % 0 /100 WBC (0); Platelet Count 94 Thou/mm3 (140-440); RDW Standard Deviation 46.6 fL (36.4-46.3); Red Blood Count 3.99 Miln/mm3 (4.00-5.20); White Blood Count 4.1 Thou/mm3 (3.6-11.0)
[2025-01-21 06:52] LABS: Alanine Aminotransferase 11 U/L (10-49); Albumin, Serum 3.8 gm/dL (3.4-4.8); Albumin/Globulin Ratio 1.4 (1.2-2.2); Alkaline Phosphatase 92 U/L (46-116); Anion Gap 7 (7-16); Aspartate Amino Transferase 25 U/L (0-34); BUN/Creatinine Ratio 25 Ratio (12-20); Bilirubin,Total 1.7 mg/dL (0.3-1.2); Blood Urea Nitrogen 20 mg/dL (9-23); Calcium 8.9 mg/dL (8.3-10.6); Calcium (Corrected) 9.1 mg/dL (8.5-10.1); Carbon Dioxide 27.8 mMol/L (20.0-31.0); Chloride 105 mMol/L (98-107); Creatinine (Component) 0.8 mg/dL (0.6-1.3); Globulin 2.7 gm/dL (2.3-3.5); Glucose 86 mg/dL (74-106); Osmolality,Calculated 281 (275-295); Potassium 3.9 mMol/L (3.4-5.1); Sodium 140 mMol/L (136-145); Total Protein 6.5 gm/dL (5.7-8.2); eGFR > 60 See Note
--- NOTE | 2025-01-21 08:24 | PD.IMPROG ---
Documentation for date of: 01/21/25 Subjective Subjective Interval history: rate controlled afib with chf continue meds Exam Vital Signs Temp Pulse Resp BP Pulse Ox O2 Del Method 96.9 F 94 20 98/79 97 Room Air 01/21/25 04:00 01/21/25 04:00 01/21/25 04:00 01/21/25 04:00 01/21/25 04:00 01/21/25 04:00 Routine HEENT Exam Head: Present normocephalic and atraumatic Eye: Present EOMI and PERRL ENT: Present mucous membranes moist Routine Neck Exam Neck: Present supple and trachea midline Routine Respiratory Exam Respiratory: Present chest non-tender, lungs clear, normal breath sounds and no resp distress Routine Cardiovascular Exam Cardiovascular: Present RRR Routine Abdominal Exam Abdominal: Present soft and normoactive bowel sounds Routine Extremities Exam Extremities: Present full ROM Routine Skin Exam Skin: Present intact, dry and warm Routine Neurological Exam Neurological: Present alert, oriented X3 and CN II-XII intact Routine Psychiatric Exam Psychiatric: Present normal affect and normal thought process Objective Labs 01/21/25 05:00 01/21/25 05:00 Labs: Laboratory Results - last 24 hr 01/21/25 05:00 WBC 4.1 RBC 3.99 L Hgb 12.2 Hct 37.0 MCV 93 MCH 30.6 MCHC 33.0 RDW Std Deviation 46.6 H Plt Count 94 L Neut % (Auto) 52 Lymph % (Auto) 36 [place] % (Auto) 10 Eos % (Auto) 1 Baso % (Auto) 1 Neut # (Auto) 2.2 Lymph # (Auto) 1.5 [place] # (Auto) 0.4 Eos # (Auto) 0.1 Baso # (Auto) 0.0 Immature Gran # (Auto) 0.01 H Absolute Nucleated RBC 0.00 Immature Gran % 0 Nucleated RBC % 0 Sodium 140 Potassium 3.9 Chloride 105 Carbon Dioxide 27.8 Anion Gap 7 BUN 20 Creatinine 0.8 Estim Creat Clear Calc 56.0 L eGFR > 60 BUN/Creatinine Ratio 25 H Glucose 86 Calculated Osmolality 281 Calcium 8.9 Corrected Calcium 9.1 Phosphorus 5.0 Total Bilirubin 1.7 H AST 25 ALT 11 Alkaline Phosphatase 92 Total Protein 6.5 Albumin 3.8 Globulin 2.7 Albumin/Globulin Ratio 1.4 Assessment & Plan A&P Narrative resume home meds conitinue anticoagulation Time Spent With Patient Time: Total time spent is greater than 50% in coordination of care (as documented) at patient's floor/unit and/or counseling patient:
[2025-01-21] MEDS: DAPAGLIFLOZIN PROPANEDIOL 5 MG TABLET PO (09:55)
[2025-01-21] MEDS: SENNA TABLET 1 TAB PO (09:55)
[2025-01-21] MEDS: APIXABAN 2.5 MG TABLET 5 MG PO ×2 (09:55→20:40)
--- NOTE | 2025-01-21 11:59 | ESPR_ITS ---
<Statement entered by Charito Lackey MD - 01/21/25 18:10> Patient seen and examined at bedside. No acute overnight events reported. Patient continues to have palpitations well eating. Patient states that these palpitations are worse despite having them before. Patient states that her pacemaker was placed about 12 to 13 years ago. Will start patient on midodrine 10 mg 3 times daily and see how her blood pressure tolerates. Will consider starting Lasix tomorrow depending on patient's clinical symptoms and signs. I discussed with and supervised the internal auditor physician who took care of this patient. I personally saw and examined the patient and discussed the assessment and plan with the entire medicine team, including my attending Dr. Sevilla, I agree with most of the assessment and plan as documented below Charito Lackey M.D. PGY-2 Documentation for date of: 01/21/25 Subjective Subjective Interval history: Patient seen today at the bedside fine awake, alert, oriented x 3. No overnight events reported. Vital signs stable at this time some notable soft blood pressure. Started patient on midodrine 10 mg 3 times daily will reevaluate to see if patient requires more diuresis however today patient has net positive fluid balance. Exam Vital Signs Temp Pulse Resp BP Pulse Ox O2 Del Method 97.2 F 117 H 9 L 93/68 98 Room Air 01/21/25 09:14 01/21/25 09:14 01/21/25 09:14 01/21/25 09:14 01/21/25 09:14 01/21/25 09:14 Narrative Exam Physical Exam GENERAL: NAD, AAOx3 HEENT: Moist mucosa. Eyes open, symmetrical, & clear CARDIO: Heart RRR, no obvious murmurs PULM: No noted coughing/dyspnea CTA B/L, no R/W/R GI: Abdomen soft, nondistended, no pain on palpation. BSx4 SKIN/MSK/EXT: No wounds/rashes/edema/amputations, no pain on palpation. Pedal pulses present B/L NEURO: AAOx3, no focal neuro deficits, able to move all 4 extremities Objective Labs 01/21/25 05:00 01/21/25 05:00 Labs: Laboratory Results - last 24 hr 01/21/25 05:00 WBC 4.1 RBC 3.99 L Hgb 12.2 Hct 37.0 MCV 93 MCH 30.6 MCHC 33.0 RDW Std Deviation 46.6 H Plt Count 94 L Neut % (Auto) 52 Lymph % (Auto) 36 [place] % (Auto) 10 Eos % (Auto) 1 Baso % (Auto) 1 Neut # (Auto) 2.2 Lymph # (Auto) 1.5 [place] # (Auto) 0.4 Eos # (Auto) 0.1 Baso # (Auto) 0.0 Immature Gran # (Auto) 0.01 H Absolute Nucleated RBC 0.00 Immature Gran % 0 Nucleated RBC % 0 Sodium 140 Potassium 3.9 Chloride 105 Carbon Dioxide 27.8 Anion Gap 7 BUN 20 Creatinine 0.8 Estim Creat Clear Calc 56.0 L eGFR > 60 BUN/Creatinine Ratio 25 H Glucose 86 Calculated Osmolality 281 Calcium 8.9 Corrected Calcium 9.1 Phosphorus 5.0 Total Bilirubin 1.7 H AST 25 ALT 11 Alkaline Phosphatase 92 Total Protein 6.5 Albumin 3.8 Globulin 2.7 Albumin/Globulin Ratio 1.4 Quality Measures Quality Measures VTE prophylaxis Advance care planning discussed with:: patient Assessment & Plan Assessment Current Active Medications: Generic Name Dose Route Start Last Admin Trade Name Freq PRN Reason Stop Dose Admin Acetaminophen 650 mg 01/18/25 19:31 01/21/25 02:05 Acetaminophen 325 Mg Tablet PO 02/17/25 19:30 650 mg Q6H PRN Administration Fever >101.5 Hydrocodone Bitart/Acetaminophen 1 tab 01/21/25 03:54 01/21/25 04:03 Hydrocodone/Apap 5/325 Tablet PO 01/26/25 03:53 1 tab Q8HR PRN Administration PAIN SCALE 7-10 (Severe Apixaban 5 mg 01/18/25 21:00 01/21/25 09:55 Apixaban 2.5 Mg Tablet PO 02/17/25 20:59 5 mg BID TEAGAN Administration Cyclobenzaprine HCl 5 mg 01/20/25 10:58 01/21/25 00:22 Cyclobenzaprine 5 Mg Tablet PO 02/19/25 10:57 5 mg TID PRN Administration MUSCLE SPASMS Dapagliflozin 5 mg 01/19/25 09:00 01/21/25 09:55 Dapagliflozin Propanediol 5 Mg Tablet PO 02/18/25 08:59 5 mg QAM TEAGAN Administration Furosemide 20 mg 01/19/25 09:00 01/19/25 09:15 Furosemide Inj 10 Mg/Ml Vial 2 Ml IVP 02/18/25 08:59 20 mg BID TEAGAN Administration Gabapentin 100 mg 01/18/25 21:30 01/20/25 20:44 Gabapentin 100 Mg Capsule PO 02/17/25 21:29 100 mg HS TEAGAN Administration Pharmacy Consult 1 each 01/19/25 09:00 Pharmacy To Consult Pneumovacc XX 02/18/25 08:59 PRN PRN CONSULT Pneumococcal Polyvalent Vaccine 0.5 ml 01/22/25 09:30 Pneumoc 20-Caryn Conj-Dip Crm/Pf 0.5 Ml Syringe IMi 01/22/25 09:31 .ONCE ONE Sennosides 1 tab 01/19/25 09:00 01/21/25 09:55 Senna Tablet PO 02/18/25 08:59 1 tab QDAY TEAGAN Administration Protocol Plan 74-year-old female patient with past history of A-fib on Eliquis, HFrEF EF 30 to 35% in 2022, sick sinus syndrome status post pacemaker placement, was brought to the ED due to palpitation and shortness of breath for the past 5 days. Patient was admitted for CHF exacerbation workup. #Acute HFrEF exacerbation #Palpitations #History of sick sinus syndrome status post pacemaker placement #History of A-fib with RVR Patient recently stopped her diuretics as per her PCP recommendations. Etiology of the palpitations are likely due to her SSS, patient also revealed that she needed her pacement replaced due to possible low battery life next month. patient was found to have heart rate of 105, blood pressure of 97/75. Examination showed elevated JVD. Patient was unable to lay flat because of the shortness of breath. Last echo from 2022 showed LV severely dilated. Severe systolic dysfunctio. Global hypokinesis wall motion. Estimated EF 30-35% BNP today is 1333. Patient started on IV Lasix. Lasix held due to soft blood pressure. -Midodrine 10mg TID, to give room for diuresis -Strict in and out -Fluid restriction to 1500 mL/day -pending echocardiogram -Resume home medication Eliquis 5 mg p.o. daily -Cardiology consulted, appreciate recommendations #Hyperbilirubinemia Total bilirubin was found to be 1.5. Hemoglobin 11.9 which is borderline normal. Liver enzymes are within normal limits, alkaline phosphatase within normal limits also. Most likely secondary to liver congestion -Daily monitoring Case discussed with my senior Dr. Lackey PGY-[address] Roel Gloria MD PGY-1 FEN: Cardiac diet DVT ppx: Eliquis GI ppx: Protonix IV lines: PIV Code status: Full code Dispo: Telemetry Attending Provider Attestation/Addendum I have discussed and was present for the essential components of the history, physical examination, diagnosis, and treatment plan with the resident. I agree with the patient's care as documented by the resident and amended herein by me. Colton Sevilla, DO. Although this document has been carefully reviewed, there may still be some phonetic and other typographical errors. These errors are purely grammatical due to imperfections in the software program and should not be construed in any way to compromise the substance of the patient's medical care during this visit.
[2025-01-21] MEDS: MIDODRINE 5 MG TABLET 10 MG PO ×2 (14:05→20:39)
--- NOTE | 2025-01-21 15:25 | PC.SS ---
rounding note: echo pending. D/c plan: home
[2025-01-21] MEDS: GABAPENTIN 100 MG CAPSULE PO (20:39)
[2025-01-22] VITALS (19 sets, daily range): BP systolic 87–136; BP diastolic 52–96; PULSE 74–130; RESP 13–95; TEMP 36.1–36.9; O2SAT 95–97; BMI 28.8
[2025-01-22] MEDS: CYCLObenzaPRINE 5 MG TABLET PO (04:38)
[2025-01-22] MEDS: MIDODRINE 5 MG TABLET 10 MG PO ×3 (05:25→21:07)
[2025-01-22 06:22] LABS: Basophils % (Auto) 1 % (0-2.5); Eosinophils % (Auto) 1 % (0-10); Hemoglobin 11.9 g/dL (12.0-16.0); Immature Granulocytes % (Auto) 0 % (0-0); Immature Granulocytes Auto 0.01 Thou/mm3 (0.00-0.00); Lymphocytes # (Auto) 1.4 Thou/mm3 (1.0-4.8); Lymphocytes % (Auto) 30 % (10-50); Mean Corpuscular HGB Conc 33.1 g/dl (31.0-37.0); Mean Corpuscular Hemoglobin 30.5 pg (25.0-35.0); Mean Corpuscular Volume 92 fL (80-100); Monocytes # (Auto) 0.4 Thou/mm3 (0.0-0.8); Monocytes % (Auto) 10 % (0-12); Neutrophils # (Auto) 2.7 Thou/mm3 (1.8-7.7); Neutrophils % (Auto) 59 % (37-80); Nucleated Red Blood Cell % 0 /100 WBC (0); Platelet Count 130 Thou/mm3 (140-440); RDW Standard Deviation 46.6 fL (36.4-46.3); White Blood Count 4.6 Thou/mm3 (3.6-11.0)
[2025-01-22 06:37] LABS: Alanine Aminotransferase 11 U/L (10-49); Albumin, Serum 3.9 gm/dL (3.4-4.8); Albumin/Globulin Ratio 1.4 (1.2-2.2); Alkaline Phosphatase 96 U/L (46-116); Anion Gap 6 (7-16); Aspartate Amino Transferase 27 U/L (0-34); BUN/Creatinine Ratio 21 Ratio (12-20); Bilirubin,Total 1.8 mg/dL (0.3-1.2); Blood Urea Nitrogen 19 mg/dL (9-23); Calcium (Corrected) 9.1 mg/dL (8.5-10.1); Carbon Dioxide 26.9 mMol/L (20.0-31.0); Chloride 105 mMol/L (98-107); Creatinine (Component) 0.9 mg/dL (0.6-1.3); Estimated Creatinine Clearance 49.6 mL/min (>60); Globulin 2.8 gm/dL (2.3-3.5); Glucose 93 mg/dL (74-106); Magnesium 2.1 mg/dL (1.6-2.6); Osmolality,Calculated 277 (275-295); Phosphorous 4.8 mg/dL (2.4-5.1); Potassium 4.2 mMol/L (3.4-5.1); Sodium 138 mMol/L (136-145); Total Protein 6.7 gm/dL (5.7-8.2); eGFR > 60 See Note
--- NOTE | 2025-01-22 07:47 | PD.IMPROG ---
Documentation for date of: 01/22/25 Subjective Subjective Interval history: comfortable HR improved Exam Vital Signs Temp Pulse Resp BP Pulse Ox O2 Del Method 97.8 F 89 17 92/75 97 Room Air 01/22/25 04:00 01/22/25 06:36 01/22/25 06:36 01/22/25 05:25 01/22/25 04:00 01/22/25 04:00 Routine HEENT Exam Head: Present normocephalic and atraumatic Eye: Present EOMI and PERRL ENT: Present mucous membranes moist Routine Neck Exam Neck: Present supple and trachea midline Routine Respiratory Exam Respiratory: Present chest non-tender, lungs clear, normal breath sounds and no resp distress Routine Cardiovascular Exam Cardiovascular: Present RRR Routine Abdominal Exam Abdominal: Present soft and normoactive bowel sounds Routine Extremities Exam Extremities: Present full ROM Routine Skin Exam Skin: Present intact, dry and warm Routine Neurological Exam Neurological: Present alert, oriented X3 and CN II-XII intact Routine Psychiatric Exam Psychiatric: Present normal affect and normal thought process Objective Labs 01/22/25 05:43 01/22/25 05:43 Labs: Laboratory Results - last 24 hr 01/22/25 05:43 WBC 4.6 RBC 3.90 L Hgb 11.9 L Hct 36.0 MCV 92 MCH 30.5 MCHC 33.1 RDW Std Deviation 46.6 H Plt Count 130 L D Neut % (Auto) 59 Lymph % (Auto) 30 [place] % (Auto) 10 Eos % (Auto) 1 Baso % (Auto) 1 Neut # (Auto) 2.7 Lymph # (Auto) 1.4 [place] # (Auto) 0.4 Eos # (Auto) 0.0 Baso # (Auto) 0.0 Immature Gran # (Auto) 0.01 H Absolute Nucleated RBC 0.00 Immature Gran % 0 Nucleated RBC % 0 Sodium 138 Potassium 4.2 Chloride 105 Carbon Dioxide 26.9 Anion Gap 6 L BUN 19 Creatinine 0.9 Estim Creat Clear Calc 49.6 L eGFR > 60 BUN/Creatinine Ratio 21 H Glucose 93 Calculated Osmolality 277 Calcium 9.0 Corrected Calcium 9.1 Phosphorus 4.8 Magnesium 2.1 Total Bilirubin 1.8 H AST 27 ALT 11 Alkaline Phosphatase 96 Total Protein 6.7 Albumin 3.9 Globulin 2.8 Albumin/Globulin Ratio 1.4 Assessment & Plan A&P Narrative resume home meds conitinue anticoagulation Time Spent With Patient Time: Total time spent is greater than 50% in coordination of care (as documented) at patient's floor/unit and/or counseling patient:
[2025-01-22] MEDS: ONDANSETRON INJ 2 MG/ML INJ 2 ML 4 MG IV (08:22)
--- NOTE | 2025-01-22 08:30 | PC.NURSE ---
MD Carroll notified of pt c/o of dizziness, nausea, palpitations. Notified of vital signs and current BP, see vital. O2 sat 92%. Pt placed on 1L NC. MD to come assess pt. No new orders
[2025-01-22] MEDS: APIXABAN 2.5 MG TABLET 5 MG PO ×2 (08:36→21:08)
[2025-01-22 09:05] LABS: Digoxin 0.7 ng/mL (0.8-2.0)
[2025-01-22] MEDS: SODIUM CHLORIDE 0.9% 250 ML 250 ML 999 ML IV (10:36)
[2025-01-22] MEDS: DIGOXIN 0.125 MG TABLET PO (11:17)
--- NOTE | 2025-01-22 11:50 | PC.NURSE ---
RESIDENTS AT BEDSIDE ASSESSING PT AFTER NOTIFYING OF FAMILY CONCERN FOR PT BEING LETHARGIC AND HR FLUCTUATING 110-130'S. RESIDENT TARYN SPOKE WITH DEPARTMENT [employer]IC [employer] LOS AND NO CONCERN FOR PT HR OR MENTATION. [facility] NURSE [place] AWARE. NO NEW ORDERS.
--- NOTE | 2025-01-22 12:30 | PC.SS ---
Update: Patient is pending an Echo.
--- NOTE | 2025-01-22 13:02 | ESPR_ITS ---
<Statement entered by Ashlee Weeks MD - 01/22/25 13:59> Patient was seen and examined. No acute overnight events. Patient has been having A-fib with rapid RVR. Yesterday home digoxin was held due to low blood pressure as well as of bradycardia. Today we will restart digoxin along with a loading dose. Echo is still pending, upon our evaluation patient was noted to be dehydrated, Lasix was held yesterday, patient was given to 250 mL of NS. Will continue close monitor hemodynamics. Will follow-up with echo results. Physical therapy was placed, monitor for 24 hours, anticipate discharge in next 24 hours if patient is stable. I personally saw and examined the patient and discussed the assessment and plan with the entire medicine team, including my attending Dr. Sevilla, Ashlee Weeks M.D. PGY-2 Disclaimer: Despite multiple revisions, due to the dictation software being used, the document bellow may not be free of grammatical errors including phonetic/typographic errors. However, this does not deter from our commitment to providing health care in the patient's best interest in mind. Documentation for date of: 01/22/25 Subjective Subjective Interval history: No overnight events reported. Patient deneid chest pain or SOB, on 2 liters nasal canula. Patient HR from 110-129. Restarted Digoxin with loading dose of Digoxin 0.125 X 1 followed by Digoxin 0.125 mg IVP Q6H X2. Holding Furosemide given hypotension. Exam Vital Signs Temp Pulse Resp BP Pulse Ox O2 Del Method O2 Flow Rate 97.2 F 120 H 18 104/86 H 95 Nasal Cannula 1 01/22/25 08:30 01/22/25 11:17 01/22/25 08:30 01/22/25 11:17 01/22/25 08:30 01/22/25 08:30 01/22/25 08:30 Narrative Exam General Appearance: Alert & Oriented X3, well-nourished female who is lying in bed in no acute distress HEENT: Skull symmetrical and atraumatic. Conjunctivae pin and moist. Pupils equal, round, reactive to light and accommodation (PERRL). External ear without lesion or discharge. Straight, nares patient, mucosa pink, no discharge. No thyroid nodule appreciated. No cervical lymphadenopathy. Cardio: Tachycardia and Irregular heart rate. No murmurs or extra heart sounds auscultated. No bruits on carotid auscultation. No peripheral edema or cyanosis. No JVD. Peripheral edema +2 Lungs: Symmetric with good expansion. Chest and back non-tender. Breath sounds vesicular without crackles, wheezing or rhonchi Abdomen: Non-tender, Non-distended, Normal Reactive Bowel Sounds Neuro: Alert, cooperative, oriented to person, place, and time. Speech clear. CN grossly intact. Upper motor strength 5/5 and Lower motor strength 5/5. Sensation intact. Objective Labs 01/22/25 05:43 01/22/25 05:43 Labs: Laboratory Results - last 24 hr 01/22/25 05:43 WBC 4.6 RBC 3.90 L Hgb 11.9 L Hct 36.0 MCV 92 MCH 30.5 MCHC 33.1 RDW Std Deviation 46.6 H Plt Count 130 L D Neut % (Auto) 59 Lymph % (Auto) 30 [place] % (Auto) 10 Eos % (Auto) 1 Baso % (Auto) 1 Neut # (Auto) 2.7 Lymph # (Auto) 1.4 [place] # (Auto) 0.4 Eos # (Auto) 0.0 Baso # (Auto) 0.0 Immature Gran # (Auto) 0.01 H Absolute Nucleated RBC 0.00 Immature Gran % 0 Nucleated RBC % 0 Sodium 138 Potassium 4.2 Chloride 105 Carbon Dioxide 26.9 Anion Gap 6 L BUN 19 Creatinine 0.9 Estim Creat Clear Calc 49.6 L eGFR > 60 BUN/Creatinine Ratio 21 H Glucose 93 Calculated Osmolality 277 Calcium 9.0 Corrected Calcium 9.1 Phosphorus 4.8 Magnesium 2.1 Total Bilirubin 1.8 H AST 27 ALT 11 Alkaline Phosphatase 96 Total Protein 6.7 Albumin 3.9 Globulin 2.8 Albumin/Globulin Ratio 1.4 Digoxin 0.7 L Quality Measures Quality Measures VTE prophylaxis Advance care planning discussed with:: patient Assessment & Plan Assessment Current Active Medications: Generic Name Dose Route Start Last Admin Trade Name Freq PRN Reason Stop Dose Admin Acetaminophen 650 mg 01/18/25 19:31 01/21/25 02:05 Acetaminophen 325 Mg Tablet PO 02/17/25 19:30 650 mg Q6H PRN Administration Fever >101.5 Hydrocodone Bitart/Acetaminophen 1 tab 01/21/25 03:54 01/21/25 23:43 Hydrocodone/Apap 5/325 Tablet PO 01/26/25 03:53 1 tab Q8HR PRN Administration PAIN SCALE 7-10 (Severe Apixaban 5 mg 01/18/25 21:00 01/22/25 08:36 Apixaban 2.5 Mg Tablet PO 02/17/25 20:59 5 mg BID TEAGAN Administration Cyclobenzaprine HCl 5 mg 01/20/25 10:58 01/22/25 04:38 Cyclobenzaprine 5 Mg Tablet PO 02/19/25 10:57 5 mg TID PRN Administration MUSCLE SPASMS Dapagliflozin 10 mg 01/22/25 09:00 Dapagliflozin Propanediol 5 Mg Tablet PO 02/21/25 08:59 QAM TEAGAN Digoxin 0.125 mg 01/22/25 10:15 01/22/25 11:17 Digoxin 0.125 Mg Tablet PO 02/21/25 10:14 0.125 mg DAILY TEAGAN Administration Furosemide 20 mg 01/19/25 09:00 01/19/25 09:15 Furosemide Inj 10 Mg/Ml Vial 2 Ml IVP 02/18/25 08:59 20 mg BID TEAGAN Administration Gabapentin 100 mg 01/18/25 21:30 01/21/25 20:39 Gabapentin 100 Mg Capsule PO 02/17/25 21:29 100 mg HS TEAGAN Administration Lidocaine 1 patch 01/21/25 14:29 Lidocaine 5% 1 Patch TOP 02/20/25 14:28 UD PRN PAIN Protocol Midodrine 10 mg 01/21/25 14:00 01/22/25 05:25 Midodrine 5 Mg Tablet PO 02/20/25 13:59 10 mg TID TEAGAN Administration Ondansetron HCl 4 mg 01/22/25 08:18 01/22/25 08:22 Ondansetron Inj 2 Mg/Ml Inj 2 Ml IV 02/21/25 08:17 4 mg Q8HR PRN Administration NAUSEA OR VOMITING Protocol Pharmacy Consult 1 each 01/19/25 09:00 Pharmacy To Consult Pneumovacc XX 02/18/25 08:59 PRN PRN CONSULT Sennosides 1 tab 01/19/25 09:00 01/22/25 08:42 Senna Tablet PO 02/18/25 08:59 Not Given QDAY TEAGAN Protocol Plan 74-year-old female patient with past history of A-fib on Eliquis, HFrEF EF 30 to 35% in 2022, sick sinus syndrome status post pacemaker placement, was brought to the ED due to palpitation and shortness of breath for the past 5 days. Patient was admitted for CHF exacerbation workup. #Acute HFrEF exacerbation #Palpitations #History of sick sinus syndrome status post pacemaker placement #History of A-fib with RVR Patient recently stopped her diuretics as per her PCP recommendations. Etiology of the palpitations are likely due to her SSS, patient also revealed that she needed her pacement replaced due to possible low battery life next month. patient was found to have heart rate of 105, blood pressure of 97/75. Examination showed elevated JVD. Patient was unable to lay flat because of the shortness of breath. Last echo from 2022 showed LV severely dilated. Severe systolic dysfunctio. Global hypokinesis wall motion. Estimated EF 30-35% () -BNP (01/18/2025) 1333 Intake 820 out 250 balance 570 Wt 69.264 (01/22/2025); 69.944 (01/21/2025) Plan: -Pending Echo -Digoxin 0.125 PO; 0.25 mg IVP X 1, Digoxin 0.125 mg IVP Q6H X 2 -Dapagloiflozin 10 mg PO Qday-Holding -Holding Lasix -Midodrine 10mg TID -Strict in and out & daily weight checks -Fluid restriction to 1500 mL/day -Resume home medication Eliquis 5 mg p.o. daily -Cardiology consulted, appreciate recommendations-patient will follow up in outpatient setting with Dr. Billingsley on 01/29/2025 and pacemaker will be check then. #Hyperbilirubinemia Total bilirubin was found to be 1.5. Hemoglobin 11.9 which is borderline normal. Liver enzymes are within normal limits, alkaline phosphatase within normal limits also. Most likely secondary to liver congestion -Daily monitoring FEN: Cardiac diet, fluid restricted 1500 ml DVT ppx: Eliquis GI ppx: Protonix IV lines: PIV Code status: Full code Dispo: Telemetry - The patient's plan was discussed with attending Dr. Sevilla and senior residents Dr. Micky Bansal MD PGY1 Internal Medicine Attending Provider Attestation/Addendum I have discussed and was present for the essential components of the history, physical examination, diagnosis, and treatment plan with the resident. I agree with the patient's care as documented by the resident and amended herein by me. Colton Sevilla DO. Patient seen and evaluated this AM. No acute events overnight, vital signs stable, patient afebrile. Heart rate is still labile from the high 90s into the 130s. Patient did states she felt lightheaded this morning which may be attributed to arrhythmia versus hypotension. Blood pressure still soft however BP is chronically low. Will still continue to hold diuretics, continue midodrine, will restart her digoxin today which will hopefully better control her heart rate. Will consider starting diuretics again tomorrow if blood pressure improves, echo still pending, will continue heart failure measures, cardiology recs appreciated. Although this document has been carefully reviewed, there may still be some phonetic and other typographical errors. These errors are purely grammatical due to imperfections in the software program and should not be construed in any way to compromise the substance of the patient's medical care during this visit.
[2025-01-22] MEDS: DIGOXIN INJ 0.25 MG/ML AMP 2 ML IVP (14:40)
--- NOTE | 2025-01-22 17:22 | PC.NURSE ---
NOTIFIED MD CENTENO OF PT COMPLAINING OF PALPITATIONS AND HR IN 130'S. VITALS STABLE. NO NEW ORDER MD WILL ADD MEDICATION.
[2025-01-22] MEDS: DILTIAZEM 30 MG TABLET PO (18:05)
[2025-01-22] MEDS: DIGOXIN INJ 0.25 MG/ML AMP 2 ML 0.125 MG IVP (20:09)
[2025-01-22] MEDS: GABAPENTIN 100 MG CAPSULE PO (21:11)
[2025-01-23] VITALS (18 sets, daily range): BP systolic 91–112; BP diastolic 59–84; PULSE 70–92; RESP 13–98; TEMP 36.1–36.9; O2SAT 94–97
[2025-01-23] MEDS: DIGOXIN INJ 0.25 MG/ML AMP 2 ML 0.125 MG IVP (01:38)
--- NOTE | 2025-01-23 03:53 | PC.NURSE ---
[facility] downtime occurred on 01/23/25 from 0200 to 0350.
[2025-01-23] MEDS: MIDODRINE 5 MG TABLET 10 MG PO ×3 (05:45→21:12)
[2025-01-23 05:56] LABS: Basophils % (Auto) 0 % (0-2.5); Eosinophils % (Auto) 1 % (0-10); Hematocrit 36.3 % (36.0-46.0); Hemoglobin 12.1 g/dL (12.0-16.0); Immature Granulocytes % (Auto) 0 % (0-0); Immature Granulocytes Auto 0.02 Thou/mm3 (0.00-0.00); Lymphocytes # (Auto) 1.1 Thou/mm3 (1.0-4.8); Lymphocytes % (Auto) 24 % (10-50); Mean Corpuscular HGB Conc 33.3 g/dl (31.0-37.0); Mean Corpuscular Hemoglobin 30.7 pg (25.0-35.0); Mean Corpuscular Volume 92 fL (80-100); Monocytes # (Auto) 0.5 Thou/mm3 (0.0-0.8); Monocytes % (Auto) 11 % (0-12); Neutrophils % (Auto) 64 % (37-80); Nucleated Red Blood Cell % 0 /100 WBC (0); Platelet Count 80 Thou/mm3 (140-440); RDW Standard Deviation 46.2 fL (36.4-46.3); Red Blood Count 3.94 Miln/mm3 (4.00-5.20); White Blood Count 4.7 Thou/mm3 (3.6-11.0)
[2025-01-23 07:55] LABS: Alanine Aminotransferase 11 U/L (10-49); Albumin, Serum 3.7 gm/dL (3.4-4.8); Albumin/Globulin Ratio 1.4 (1.2-2.2); Alkaline Phosphatase 84 U/L (46-116); Anion Gap 9 (7-16); Aspartate Amino Transferase 27 U/L (0-34); BUN/Creatinine Ratio 21 Ratio (12-20); Bilirubin,Total 2.7 mg/dL (0.3-1.2); Blood Urea Nitrogen 17 mg/dL (9-23); Calcium 8.8 mg/dL (8.3-10.6); Carbon Dioxide 25.1 mMol/L (20.0-31.0); Chloride 105 mMol/L (98-107); Creatinine (Component) 0.8 mg/dL (0.6-1.3); Digoxin 2.2 ng/mL (0.8-2.0); Estimated Creatinine Clearance 55.7 mL/min (>60); Globulin 2.6 gm/dL (2.3-3.5); Glucose 81 mg/dL (74-106); Osmolality,Calculated 278 (275-295); Phosphorous 3.9 mg/dL (2.4-5.1); Potassium 4.2 mMol/L (3.4-5.1); Sodium 139 mMol/L (136-145); Total Protein 6.3 gm/dL (5.7-8.2); eGFR > 60 See Note
[2025-01-23] MEDS: APIXABAN 2.5 MG TABLET 5 MG PO ×2 (08:13→21:11)
[2025-01-23] MEDS: DIGOXIN 0.125 MG TABLET PO (08:13)
[2025-01-23] MEDS: ACETAMINOPHEN 325 MG TABLET 650 MG PO (09:05)
--- NOTE | 2025-01-23 12:01 | ECHO_ITS ---
Transthoracic Echo Report Ht (in): 61 Wt (lb): 152 Exam Location: Portable Status: Inpatient Server Software Engineer: NUÑEZ Jaida^^^^ Indications: Procedure Performed: BP: 117 / 73 HR: 68 Technical Quality: Fair MEASUREMENTS (Male / Female) Normal Values 2D ECHO LV Diastolic Diameter PLAX 6.6 cm 4.2 - 5.9 / 3.9 - 5.3 cm LV Systolic Diameter PLAX 5.8 cm IVS Diastolic Thickness 0.7 cm 0.6 - 1.0 / 0.6 - 0.9 cm LVPW Diastolic Thickness 0.5 cm 0.6 - 1.0 / 0.6 - 0.9 cm LV Relative Wall Thickness 0.2 LVOT Diameter 1.6 cm Aortic Root Diameter 3.1 cm LA Systolic Diameter LX 5.3 cm 3.0 - 4.0 / 2.7 - 3.8 cm LV Ejection Fraction MOD BP 33.3 % >= 55 % LV Cardiac Index MOD BP 3467.3 cm?/min?m? LV Ejection Fraction MOD 4C 33.3 % LV Cardiac Index MOD 4C 3272.6 cm?/min?m? LV Ejection Fraction 4C AL 34.3 % LV Cardiac Index 4C AL 3629.5 cm?/min?m? LV Ejection Fraction MOD 2C 36.0 % LV Cardiac Index MOD 2C 3740.1 cm?/min?m? LV Ejection Fraction 2C AL 37.0 % LV Cardiac Index 2C AL 3973.3 cm?/min?m? LA Volume Index 114.1 cm?/m? 16 - 28 cm?/m? Ascending Aorta Diameter 3.0 cm DOPPLER AV Peak Velocity 155.0 cm/s AV Peak Gradient 9.6 mmHg AV Mean Gradient 6.0 mmHg AV Velocity Time Integral 28.7 cm LVOT Peak Velocity 89.0 cm/s LVOT Peak Gradient 3.2 mmHg LVOT Velocity Time Integral 14.0 cm LVOT Cardiac Index 1096.6 cm?/min?m? AV Area Cont Eq vti 1.0 cm? AV Area Cont Eq pk 1.2 cm? MV Area PHT 4.5 cm? MR Peak Velocity 449.3 cm/s MR Peak Gradient 80.8 mmHg Mitral E Point Velocity 133.0 cm/s LV E' Lateral Velocity 13.5 cm/s Mitral E to LV E' Lateral Ratio 9.9 LV E' Septal Velocity 5.2 cm/s Mitral E to LV E' Septal Ratio 25.7 TR Peak Velocity 318.8 cm/s TR Peak Gradient 40.6 mmHg PV Peak Velocity 102.0 cm/s PV Peak Gradient 4.2 mmHg RVOT Peak Velocity 48.0 cm/s FINDINGS Left Ventricle There are findings consistent with dilated cardiomyopathy. The left ventricular cavity size is moderately increased. The left ventricular ejection fraction is moderately decreased, estimated at 30-35%. There is grade III diastolic dysfunction of the left ventricle (restrictive filling pattern). Right Ventricle The right ventricle is normal in size and systolic function. The estimated right ventricular systolic pressure is elevated 47 mmHg. Left Atrium Severely increased left atrial volume 114 mL/m?. Right Atrium The right atrial cavity size is moderately increased. Atrial Septum The interatrial septum appears normal with no evidence of a shunt. Aorta The aorta is normal by two-dimensional, color flow and Doppler interrogation. Mitral Valve [id number] mitral regurgitation. Moderate mitral annular calcification. Moderate thickening of the mitral valve leaflets. Aortic Valve Aortic valve sclerosis. Tricuspid Valve There is moderate to severe tricuspid valve regurgitation. Pulmonic Valve Trivial pulmonic valve regurgitation. Vessels The pulmonary artery appears normal. The inferior vena cava pulmonary and hepatic veins appear normal. Pericardium The pericardium is normal by two-dimensional imaging. There is no significant pericardial effusion. CONCLUSIONS indication: CHF LV appears dilated with EF 30-35%. Diastolic Dysfunction III. RV appears normal with RVSP 47 mmHg. LA is severely dilated. RA is moderately dilated. Mod-Severe MR. Mod MAC AOV sclerosis. Moderate-Severe TR Kayla Billingsley (Electronically Signed) Final Date: 23 January 2025 16:22
--- NOTE | 2025-01-23 13:35 | ESPR_ITS ---
<Statement entered by Ashlee Weeks MD - 01/24/25 09:24> No overnight acute events. Digoxin was restarted, heart rate was controlled overnight. Also per cardiology patient started on diltiazem 30 mg,resume Bumex 1 mg daily in the setting of fluid overload # A-fib rate controlled with digoxin #History of sick sinus syndrome status post pacemaker placement Continue digoxin, currently on diltiazem 30, will consider switching diltiazem to metoprolol based on patient hemodynamics Control electrolytes, keep potassium more than 4, magnesium more than 2 #CHF exacerbation, EF of 30 to 35%, pending echo, patient started on Bumex 1 mg twice daily, currently patient is saturating well in room air. Continue fluid restriction, strict CHANTALE's, monitor urine output Will follow-up with echo results and cardiology recommendations, patient will need close follow-up outpatient with cardiology, currently not candidate for full GDMT given the low blood pressure. Holding Entresto and Farxiga. Resume as tolerates. Continue midodrine to increase BP and optimize GDMT. I personally saw and examined the patient and discussed the assessment and plan with the entire medicine team, including my attending Dr. Sevilla, Ashlee Weeks M.D. PGY-2 Disclaimer: Despite multiple revisions, due to the dictation software being used, the document bellow may not be free of grammatical errors including phonetic/typographic errors. However, this does not deter from our commitment to providing health care in the patient's best interest in mind. Documentation for date of: 01/23/25 Subjective Subjective Interval history: No overnight events reported. Patient has remained rate controlled after receiving digoxin 0.125 mg p.o., followed by digoxin 0.25 mg X IVP 1, diltiazem 30 mg p.o, digoxin 0.125 mg IV X1. Digoxin levels of 2.2. Currently holding digoxin will restart tomorrow. Resume Bumex 1 mg p.o. twice daily. Continue to hold Entresto and Farxiga. Patient denied chest pain. Patient denied SOB. No palpitations noted. Exam Vital Signs Temp Pulse Resp BP Pulse Ox O2 Del Method O2 Flow Rate 97.7 F 92 17 91/60 97 Nasal Cannula 1 01/23/25 08:00 01/23/25 11:00 01/23/25 08:00 01/23/25 10:08 01/23/25 08:00 01/23/25 08:00 01/23/25 08:00 Narrative Exam General Appearance: Alert & Oriented X3, well-nourished female who is lying in bed in no acute distress HEENT: Skull symmetrical and atraumatic. Conjunctivae pin and moist. Pupils equal, round, reactive to light and accommodation (PERRL). External ear without lesion or discharge. Straight, nares patient, mucosa pink, no discharge. No thyroid nodule appreciated. No cervical lymphadenopathy. Cardio: Normal Rate and Rhythm with S1 and S2 heart sounds. Murmur noted on right side. No bruits on carotid auscultation. Peripheral edema +2. Lungs: Symmetric with good expansion. Chest and back non-tender. Breath sounds vesicular without crackles, wheezing or rhonchi Abdomen: Non-tender, Non-distended, Normal Reactive Bowel Sounds Neuro: Alert, cooperative, oriented to person, place, and time. Speech clear. CN grossly intact. Upper motor strength 5/5 and Lower motor strength 5/5. Sensation intact. Objective Labs 01/23/25 05:39 01/23/25 05:39 Labs: Laboratory Results - last 24 hr 01/23/25 05:39 WBC 4.7 RBC 3.94 L Hgb 12.1 Hct 36.3 MCV 92 MCH 30.7 MCHC 33.3 RDW Std Deviation 46.2 Plt Count 80 L D Neut % (Auto) 64 Lymph % (Auto) 24 [place] % (Auto) 11 Eos % (Auto) 1 Baso % (Auto) 0 Neut # (Auto) 3.0 Lymph # (Auto) 1.1 [place] # (Auto) 0.5 Eos # (Auto) 0.0 Baso # (Auto) 0.0 Immature Gran # (Auto) 0.02 H Absolute Nucleated RBC 0.00 Immature Gran % 0 Nucleated RBC % 0 Sodium 139 Potassium 4.2 Chloride 105 Carbon Dioxide 25.1 Anion Gap 9 BUN 17 Creatinine 0.8 Estim Creat Clear Calc 55.7 L eGFR > 60 BUN/Creatinine Ratio 21 H Glucose 81 Calculated Osmolality 278 Calcium 8.8 Corrected Calcium 9.0 Phosphorus 3.9 Magnesium 2.0 Total Bilirubin 2.7 H D AST 27 ALT 11 Alkaline Phosphatase 84 Total Protein 6.3 Albumin 3.7 Globulin 2.6 Albumin/Globulin Ratio 1.4 Digoxin 2.2 H D Quality Measures Quality Measures VTE prophylaxis Advance care planning discussed with:: patient Assessment & Plan Assessment Current Active Medications: Generic Name Dose Route Start Last Admin Trade Name Freq PRN Reason Stop Dose Admin Acetaminophen 650 mg 01/23/25 08:21 01/23/25 09:05 Acetaminophen 325 Mg Tablet PO 02/17/25 19:30 650 mg Q6H PRN Administration Pain(1-6) or Fever >100.3 Hydrocodone Bitart/Acetaminophen 1 tab 01/21/25 03:54 01/21/25 23:43 Hydrocodone/Apap 5/325 Tablet PO 01/26/25 03:53 1 tab Q8HR PRN Administration PAIN SCALE 7-10 (Severe Apixaban 5 mg 01/18/25 21:00 01/23/25 08:13 Apixaban 2.5 Mg Tablet PO 02/17/25 20:59 5 mg BID TEAGAN Administration Cyclobenzaprine HCl 5 mg 01/20/25 10:58 01/22/25 04:38 Cyclobenzaprine 5 Mg Tablet PO 02/19/25 10:57 5 mg TID PRN Administration MUSCLE SPASMS Dapagliflozin 10 mg 01/22/25 09:00 01/23/25 10:01 Dapagliflozin Propanediol 5 Mg Tablet PO 02/21/25 08:59 Not Given QAM TEAGAN Digoxin 0.125 mg 01/22/25 10:15 01/23/25 08:13 Digoxin 0.125 Mg Tablet PO 02/21/25 10:14 0.125 mg DAILY TEAGAN Administration Furosemide 20 mg 01/19/25 09:00 01/19/25 09:15 Furosemide Inj 10 Mg/Ml Vial 2 Ml IVP 02/18/25 08:59 20 mg BID TEAGAN Administration Gabapentin 100 mg 01/18/25 21:30 01/22/25 21:11 Gabapentin 100 Mg Capsule PO 02/17/25 21:29 100 mg HS TEAGAN Administration Lidocaine 1 patch 01/21/25 14:29 Lidocaine 5% 1 Patch TOP 02/20/25 14:28 UD PRN PAIN Protocol Metoprolol Succinate 12.5 mg 01/23/25 09:00 01/23/25 10:08 Metoprolol Succinate Xl 25 Mg Tabcr PO 02/22/25 08:59 Not Given QDAY TEAGAN Midodrine 10 mg 01/22/25 13:14 01/23/25 05:45 Midodrine 5 Mg Tablet PO 02/20/25 13:59 10 mg TID TEAGAN Administration Ondansetron HCl 4 mg 01/22/25 08:18 01/22/25 08:22 Ondansetron Inj 2 Mg/Ml Inj 2 Ml IV 02/21/25 08:17 4 mg Q8HR PRN Administration NAUSEA OR VOMITING Protocol Pharmacy Consult 1 each 01/19/25 09:00 Pharmacy To Consult Pneumovacc XX 02/18/25 08:59 PRN PRN CONSULT Sennosides 1 tab 01/19/25 09:00 01/23/25 08:14 Senna Tablet PO 02/18/25 08:59 Not Given QDAY [facility] Protocol Plan #Atrial Fibrillation, rate controlled on Digoxin #Atrial Fibrillation w/ RVR, Improved #History of sick sinus syndrome status post pacemaker placement Past medical history of atrial fibrillation likely secondary to cardiomyopathy, currently rate controlled after Digoxin home dose 0.125 mg p.o., followed by digoxin 0.25 mg X IVP 1, diltiazem 30 mg p.o, and digoxin 0.125 mg IV X1. Currently holding Digoxin and d/c diltiazem. Follow up with Digoxin level with morning labs. Rate controlled between 90-80s. Plan: -Pending Echo -Digoxin 0.125 PO resume tomorrow -Digoxin level w/ monring labs -Eliquis 5 mg p.o. daily -Cardiology consulted, appreciate recommendations-patient will follow up in outpatient setting with Dr. Billingsley on 01/29/2025 and pacemaker will be check then. #Acute HFrEF Exacerbation Congestive Heart Failure, EF 30-35% (2022) Systolic Dysfunction #Hypotension Etiology: Past medical history of CHFrEF 30-35% secondary to systolic dysfucntion w/ global hypokinesis and moderarte TR. Acute exacerbation likely triggered by atrial fibrillation, not rate controlled. Elevated BNP poor marker of CHF exacerbation as patient is on Entresto as a home medicaiton. Work towards guideline directed GDMT. Diagnostic: -Echo 2022 Systolic Dysfunction. Global Hypokinesis. EF 30-35% Moderate TR -BNP (01/18/2025) 1333 Intake 820 out 250 balance 570 Wt 69.264 (01/22/2025); 69.944 (01/21/2025) NYHA Class: III Plan: -Bumex 1 mg PO BID -Hold Entresto (given soft blood pressure) & Fargixa -Resume Metoprolol AM if BP permits -Midodrine 10mg TID -Echo -K>4 and Mg >2 -Fluid Restriction and Sodium Restriction 2 g per day -SpO <90%, support PRN -Daily Weights, Strict Ins and Outs, Fluid Striction (1500) -Cardiology Consult, appreciate recommendations. #Hyperbilirubinemia Total bilirubin was found to be 1.5. Hemoglobin 11.9 which is borderline normal. Liver enzymes are within normal limits, alkaline phosphatase within normal limits also. Isolated Hyperbilirubinemia with no jaundice my be secondary to decreased bilirubin uptake as seen in heart failure patients vs liver congestion vs autoimmune such a primary billiary cholangitis. Plan: -Daily monitoring -Consider viral hepatitis FEN: Cardiac diet, fluid restricted 1500 ml DVT ppx: Eliquis GI ppx: Protonix IV lines: PIV Code status: Full code Dispo: Telemetry - The patient's plan was discussed with attending Dr. Sevilla and senior residents Dr. Micky Bansal MD PGY1 Internal Medicine Attending Provider Attestation/Addendum I have discussed and was present for the essential components of the history, physical examination, diagnosis, and treatment plan with the resident. I agree with the patient's care as documented by the resident and amended herein by me. Colton Sevilla, DO. Although this document has been carefully reviewed, there may still be some phonetic and other typographical errors. These errors are purely grammatical due to imperfections in the software program and should not be construed in any way to compromise the substance of the patient's medical care during this visit.
--- NOTE | 2025-01-23 14:09 | PC.PT ---
PT eval only. Patient is I with transfers and ambulation without AD.
[2025-01-23] MEDS: BUMETANIDE 0.5 MG TABLET 1 MG PO ×2 (16:32→21:11)
--- NOTE | 2025-01-23 16:36 | PC.SS ---
Rounding Note: Echo reading pending. Cardiology consult pending.
[2025-01-23] MEDS: GABAPENTIN 100 MG CAPSULE PO (21:11)
--- NOTE | 2025-01-23 22:30 | PC.NURSE ---
Informed Dr. Fernando regarding patient had run of a.fib with RVR her heart rate in the 130s for a few seconds, patient states that she did feel her heart racing for a few seconds but denied chest pain, SOB, N/V. Patient's HR back to pacing in the 70s. Patient's BP 89/62 MAP of 71. No new orders received.
[2025-01-24] VITALS (9 sets, daily range): BP systolic 95–121; BP diastolic 56–73; PULSE 74–101; RESP 18–21; TEMP 35.9–36.4; O2SAT 95–98
[2025-01-24] MEDS: MIDODRINE 5 MG TABLET 10 MG PO (05:36)
[2025-01-24 05:49] LABS: Basophils % (Auto) 1 % (0-2.5); Eosinophils # (Auto) 0.1 Thou/mm3 (0.0-0.5); Eosinophils % (Auto) 1 % (0-10); Hematocrit 35.9 % (36.0-46.0); Hemoglobin 11.9 g/dL (12.0-16.0); Immature Granulocytes % (Auto) 0 % (0-0); Lymphocytes # (Auto) 1.1 Thou/mm3 (1.0-4.8); Lymphocytes % (Auto) 22 % (10-50); Mean Corpuscular HGB Conc 33.1 g/dl (31.0-37.0); Mean Corpuscular Hemoglobin 30.5 pg (25.0-35.0); Mean Corpuscular Volume 92 fL (80-100); Monocytes # (Auto) 0.6 Thou/mm3 (0.0-0.8); Monocytes % (Auto) 13 % (0-12); Neutrophils # (Auto) 3.1 Thou/mm3 (1.8-7.7); Neutrophils % (Auto) 63 % (37-80); Nucleated Red Blood Cell % 0 /100 WBC (0); Platelet Count 90 Thou/mm3 (140-440); RDW Standard Deviation 44.3 fL (36.4-46.3); White Blood Count 4.9 Thou/mm3 (3.6-11.0)
[2025-01-24 06:43] LABS: Alanine Aminotransferase 10 U/L (10-49); Albumin, Serum 3.9 gm/dL (3.4-4.8); Albumin/Globulin Ratio 1.4 (1.2-2.2); Alkaline Phosphatase 87 U/L (46-116); Anion Gap 7 (7-16); Aspartate Amino Transferase 22 U/L (0-34); BUN/Creatinine Ratio 17 Ratio (12-20); Bilirubin,Total 2.7 mg/dL (0.3-1.2); Blood Urea Nitrogen 15 mg/dL (9-23); Calcium 8.9 mg/dL (8.3-10.6); Carbon Dioxide 32.2 mMol/L (20.0-31.0); Chloride 102 mMol/L (98-107); Creatinine (Component) 0.9 mg/dL (0.6-1.3); Digoxin 1.3 ng/mL (0.8-2.0); Globulin 2.7 gm/dL (2.3-3.5); Glucose 84 mg/dL (74-106); Magnesium 1.6 mg/dL (1.6-2.6); Osmolality,Calculated 281 (275-295); Phosphorous 3.4 mg/dL (2.4-5.1); Potassium 3.2 mMol/L (3.4-5.1); Sodium 141 mMol/L (136-145); Total Protein 6.6 gm/dL (5.7-8.2); eGFR > 60 See Note
[2025-01-24] MEDS: ACETAMINOPHEN 325 MG TABLET 650 MG PO (07:37)
[2025-01-24] MEDS: BUMETANIDE 0.5 MG TABLET 1 MG PO (08:47)
[2025-01-24] MEDS: SENNA TABLET 1 TAB PO (08:47)
[2025-01-24] MEDS: APIXABAN 2.5 MG TABLET 5 MG PO (08:48)
[2025-01-24] MEDS: DIGOXIN 0.125 MG TABLET PO (08:48)
--- NOTE | 2025-01-24 13:42 | ESDS_ITS ---
<Statement entered by Ashlee Weeks MD - 01/24/25 15:24> I personally saw and examined the patient and discussed the assessment and plan with the entire medicine team, including my attending Ashlee Carney M.D. PGY-2 Disclaimer: Despite multiple revisions, due to the dictation software being used, the document bellow may not be free of grammatical errors including phonetic/typographic errors. However, this does not deter from our commitment to providing health care in the patient's best interest in mind. Planned Discharge Date 01/24/25 DS: Providers Provider Date of admission: 01/18/25 19:31 Primary care physician: Hardik Gloria MD Admitting Provider: Filemon Blood MD Attending Provider on Admission: Romulo Sevilla DO Consults: 01/18/25 19:52 Consult to Cardiology Routine Comment: Consulting Provider: Vicky Billingsley 01/22/25 10:13 Referral Physical Therapy Stat Comment: Physician Instructions: Instructions: deconditioned Attending Provider on DC: Maryjane Bansal MD Discharging Provider: Maryjane Bansal MD DS: Diagnosis Problem List Completed Was Problem List Reviewed/Reconciled?: Yes Hospital Course Hospital Course Hospital course: Summary: Patient is 74-year-old female patient with past history of A-fib on Eliquis, HFrEF EF 30 to 35% (January 2025) w/ Diastolic Dysfunction, sick sinus syndrome status post pacemaker placement, RSVP 47 mmHg, who was admitted on January 19, 2025 for acute CHF exacerbation with atrial fibrillation with rvr on digoxin. ER Course: In ER, her blood pressure was 97/66, pulse rate of 102, respiratory rate of 17, temperature of 98.0, O2 saturation 97. Hemoglobin 11.9, coagulation panel within normal limits, CMP showed T. bili of 1.5, BNP of 1333. Serum creatinine was within normal limit of 0.9, potassium 3.9, magnesium 2.0. Chest x-ray was positive for mild chronic heart failure. Hospital Course: During patient's hospital course patient was placed on fluid restrictions 1500 mg liters per per day and weight monitored. Patient's digoxin was resumed at 0.125 mg/day with Eliquis 5 mg p.o. twice daily. Patient's heart rate continue to fluctuate throughout hospital course but eventually send developed A-fib with RVR sustaining a heart rate of 130. Patient's blood pressure remains soft during this time systolic blood pressure of 80s. Patient was started on diltiazem 30 mg p.o. in edition given additional digoxin IV push 0.25 mg followed by digoxin 0.125 mg IV push. Diltiazem DC'd on January 24, 2025. Entresto continues to be held given patient's soft blood pressure. Patient started on midodrine 10 mg 3 times daily please continue at home and monitor blood pressure. Patient discharged on digoxin 0.125 which is home dose. Patient's Bumex resumed 1 mg p.o. twice daily. Given soft blood pressure currently holding Entresto for heart failure. Please follow-up with cardiology to determine if Entresto can be restarted. Hyperbilirubinemia noted on labs 1.5 and continued to be elevated during hospital course. Upon discharge total bili of 2.7. Given normal AST's and ALT levels, total bili likely secondary to nora vated total bili likely secondary to heart failure and possible liver congestion. Dry weight on discharge: 70.534 #Atrial Fibrillation, rate controlled on Digoxin #Atrial Fibrillation w/ RVR, Improved #History of sick sinus syndrome status post pacemaker placement #Acute HFrEF Exacerbation #Congestive Heart Failure, EF 30-35% (january 2025) #Dystolic Dysfunction III #Hypotension, imrpoved #Hyperbilirubinemia -Please continue Digoxin 0.125 for atrial fibrillation -Please continue Bumetanide 1 mg orally twice a day for heart failure -Please record weight daily and report any changes greater than 2 lbs within 2 days, please limit total salt intake, please limit total fluid intake to 1800 ml per day. -Please continue Eliquis for anti-coagulation for atrial fibrillation, please report any bleeding that does not stop to your primary care provider as increase risk of bleeding with Eliquis. -Please wear compression stocks as tolerated. -Please continue Midodrine 10 mg orally TID if BP is less than <100/90 -Please hold Dapagliflozin 10 mg orally once a day and Hold Entresto because of low blood pressure until you see your occupational therapy assistant to determine if may be continued. -Please follow up with your primary care provider within one week of discharge -Please follow up with your occupational therapy assistant within one week of discharge, Dr. Billingsley, your occupational therapy assistant. -If your symptoms worsen,please seek immediate medical attention and return to your nearest emergency room -If you do not have a primary care provider, you may follow up at the [facility] at [address] [place] [address] [address], [place] [address], Time Spent with Patient Time attestation: Total time spent providing and/or coordinating discharge services: at least 30 minutes of care and coordination Exam Vital Signs Temp Pulse Resp BP Pulse Ox O2 Del Method O2 Flow Rate 97.6 F 74 18 95/65 95 Room Air 1 01/24/25 12:01/24/25 12:01/24/25 12:01/24/25 12:01/24/25 12:01/24/25 12:01/23/25 16:35 Narrative Exam General Appearance: Alert & Oriented X3, well-nourished female who is lying in bed in no acute distress HEENT: Skull symmetrical and atraumatic. Conjunctivae pin and moist. Pupils equal, round, reactive to light and accommodation (PERRL). External ear without lesion or discharge. Straight, nares patient, mucosa pink, no discharge. No thyroid nodule appreciated. No cervical lymphadenopathy. Cardio: Normal Rate and Rhythm with S1 and S2 heart sounds. Possible holosystolic murmur. Carotid pulse noted on physical exam. No bruits on carotid auscultation. No peripheral edema +2. Lungs: Symmetric with good expansion. Chest and back non-tender. Breath sounds vesicular without crackles, wheezing or rhonchi Abdomen: Non-tender, Non-distended, Normal Reactive Bowel Sounds Neuro: Alert, cooperative, oriented to person, place, and time. Speech clear. CN grossly intact. Upper motor strength 5/5 and Lower motor strength 5/5. Sensation intact. Discharge Plan Plan Patient Disposition: HOME (Self Care) Patient condition on transfer: Stable Care Plan Goals: Instructions: -Please continue Digoxin 0.125 for atrial fibrillation -Please continue Bumetanide 1 mg orally twice a day for heart failure -Please record weight daily and report any changes greater than 2 lbs within 2 days, please limit total salt intake, please limit total fluid intake to 1800 ml per day. -Please continue Eliquis for anti-coagulation for atrial fibrillation, please report any bleeding that does not stop to your primary care provider as increase risk of bleeding with Eliquis. -Please wear compression stocks as tolerated. -Please continue Midodrine 10 mg orally TID if BP is less than <100/90 -Please hold Dapagliflozin 10 mg orally once a day and Hold Entresto because of low blood pressure until you see your occupational therapy assistant to determine if may be continued. -Please follow up with your primary care provider within one week of discharge -Please follow up with your occupational therapy assistant within one week of discharge, Dr. Billingsley, your occupational therapy assistant. -If your symptoms worsen,please seek immediate medical attention and return to your nearest emergency room -If you do not have a primary care provider, you may follow up at the [facility] at [address] [place] [address] [address], [place] [address], Prescriptions/Referrals Prescriptions/Med Rec: New bumetanide 0.5 mg Tablet 1 mg PO BID 14 Days Qty: 56 0RF cyclobenzaprine 5 mg Tablet 5 mg PO TID PRN (Reason: Muscle Spasms) 5 Days Qty: 20 0RF midodrine 5 mg Tablet 10 mg PO TID 14 Days Qty: 84 0RF Rx Instructions: Please take if BP <100/90 as needed, please take blood pressure everyday Continued benzonatate 200 mg capsule 200 mg PO BID Eliquis 5 mg tablet 5 mg PO Q12H Patient Comments: TAKE 1 TABLET BY MOUTH TWICE DAILY digoxin 125 mcg (0.125 mg) tablet 0.125 mg PO DAILY Patient Comments: TAKE 1 TABLET BY MOUTH ONCE DAILY gabapentin 100 mg capsule 100 mg PO .QHS acetaminophen 500 mg tablet 500 mg PO Q8HR PRN (Reason: pain) 7 Days Qty: 0 0RF albuterol sulfate 90 mcg/actuation HFA aerosol inhaler 2 inh inhalation Q4H PRN (Reason: shortness of breath or wheezing) Qty: 8.5 0RF Held Entresto 24-26 mg tablet 1 tab PO BID Hold Instructions: Hold Entresto until you follow up with occupational therapy assistant Discontinued bumetanide 2 MG tablet 2 mg PO QDAY Qty: 0 Referrals: Hardik Gloria MD [Primary Care Provider] - Patient/Caregiver Discharge Instructions Discharge Activity: activity as tolerated Education Materials: AFL/Afib, Discharge Instructions for ..., ED Atrial Fibrillation, ED About Arrhythmias, ED Heart Failure, Congestive (CHF), Heart Failure Print Language: German Stand Alone Forms: Erin Award Info., Patient Portal Info Letter Discharge Order Discharge Orders: Discharge (Routine); Ordered 01/24/25 Ordered By: Maryjane Bansal Quality Discharge Quality Measures VTE prophylaxis Attestestation Attestation I have discussed and was present for the essential components of the discharge history, physical examination, diagnosis, and discharge treatment plan with the resident. I agree with the patient's discharge care as documented by the resident and amended herein by me. Colton Sevilla, . The patient understood all discharge instructions, all questions were answered satisfactorily. The patient was instructed to return to the Emergency Department is symptoms worsened or persisted. Patient will be discharged on midodrine 10 mg 3 times daily as well as her home dose Bumex however we will go with 1 mg in the morning and in the afternoon. I am going to hold Entresto for now until she follows up with her occupational therapy assistant, Dr. Billingsley due to low blood pressure. Patient was however to ambulate without issue. She does have compression stockings at home which she states she will use, she states the ones we supplied her with here were too tight and uncomfortable. Patient was stable, afebrile, tolerating p.o. intake and ambulatory at time of discharge home. All questions were answered by the patient and her satisfactorily. Although this document has been carefully reviewed, there may still be some phonetic and other typographical errors. These errors are purely grammatical due to imperfections in the software program and should not be construed in any way to compromise the substance of the patient's medical care during this visit.
[2025-01-24] MEDS: POTASSIUM CHLORIDE 10% 20 MEQ/15 ML UDC 40 MEQ PO (14:15)
--- NOTE | 2025-01-24 15:04 | PC.NURSE ---
Dr. Bansal called and ok to discharge. Notified Dr. Bansal of pnuemonia vaccine ordered, pt verbalized wants to get vaccine at primary, Dr. Bansal ok for pt to receive at primary. Educated and gave heart failure paperwork to pt and family. Educated on taking daily weights and keeping a log with weights and bp for Dr. Billingsley to see. Pt and family verbalized understanding of being careful while ambulating due to blood thinner. Education provided about when to take blood pressure 3x daily to see if need to take midodrine, with parameters in medication instructions. Pt and family verbalized have bp device at home and will be able to use to check. Education given on how to check bp and parameters to when to take midodrine. Pt and family verbalized understanding of follow up appts with primary and cardio. Pt and family verbalized understanding of 1.8L fluid restriction and to have a low sodium diet.
--- NOTE | 2025-01-24 15:50 | PC.SS ---
Rounding Note: Plan is to d/c the patient home today.
== END 2025-01-24 14:40 | disposition home or self-care (01) | DRG 293 ==
LOC: SERX 18:53 → SERHOLD 19:46 → S2NX 22:27
PROVIDERS: Nurse Practitioner Primary Care; Student in an Organized Health Care Education/Training Program; Admitting Provider Internal Medicine; Emergency Provider Emergency Medicine; PCP Family Medicine; Visit Provider Student in an Organized Health Care Education/Training Program
DX: I50.23 Acute on chronic systolic (congestive) heart failure (principal); I49.5 Sick sinus syndrome; I48.91 Unspecified atrial fibrillation; K59.09 Other constipation; K76.1 Chronic passive congestion of liver; M62.830 Muscle spasm of back; J06.9 Acute upper respiratory infection, unspecified; I95.9 Hypotension, unspecified; R00.2 Palpitations; Z95.0 Presence of cardiac pacemaker; Z79.01 Long term (current) use of anticoagulants; Z79.899 Other long term (current) drug therapy; Z88.0 Allergy status to penicillin; E86.0 Dehydration; Z88.5 Allergy status to narcotic agent
CPT/HCPCS: 36415; 71045; 76700; 80053; 80162; 83605; 83690; 83735; 83880; 84100; 84484; 85025; 85610; 85730; 93005; 93306; 96374; 96375; 97162; 99285; J1160; J1940; J2405; J3490; J7050; J8499; A9270

== ENCOUNTER 2025-02-13 17:51 | Emergency (ER) | payer MEDICARE, MEDICAID, SELFPAY ==
--- NOTE | 2025-02-13 18:13 | EKG_ITS ---
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
[2025-02-13 18:16] VITALS: BP 101/70; PULSE 94; RESP 16; TEMP 36.8; O2SAT 97; BMI 27.8
--- NOTE | 2025-02-13 18:30 | XR_ITS ---
Examination: AP chest single view Technique one AP portable upright chest single view Exam date and time: February 13, 20251958 hrs. Comparison January 18, 2025 Indications: Shortness of breath beginning 2 days ago. Findings: Mild CHF Moderate enlargement cardiac contour Prominent vascular congestion Early septal edema at the lung bases Transvenous dual-chamber bipolar cardiac motion satisfactory position Impression: Mild CHF
--- NOTE | 2025-02-13 18:32 | EDRME_ITS ---
Rapid Medical Screening Exam [facility] Arrival date/time: 02/13/25 17:51 74F with history afib on Eliquis, HFrEF EF 30 to 35% (January 2025) w/ Diastolic Dysfunction, sick sinus syndrome s/p pacemaker placement presents to ED with 1 day of generalized weakness, SOB, and sensations of panic attack and dying. Chief Complaint: Weakness Vital signs: Vital Signs Temperature 98.3 F 02/13/25 18:16 Pulse Rate 94 02/13/25 18:16 Respiratory Rate 16 02/13/25 18:16 Blood Pressure 101/70 02/13/25 18:16 Pulse Oximetry (%) 97 02/13/25 18:16 Oxygen Delivery Method Room Air 02/13/25 18:16
[2025-02-13 19:00] LABS: Collection Type, Urine Clean Catch
[2025-02-13 19:02] LABS: Basophils % (Auto) 1 % (0-2.5); Eosinophils # (Auto) 0.1 Thou/mm3 (0.0-0.5); Eosinophils % (Auto) 1 % (0-10); Hematocrit 35.1 % (36.0-46.0); Hemoglobin 11.8 g/dL (12.0-16.0); Immature Granulocytes % (Auto) 0 % (0-0); Immature Granulocytes Auto 0.01 Thou/mm3 (0.00-0.00); Lymphocytes # (Auto) 0.9 Thou/mm3 (1.0-4.8); Lymphocytes % (Auto) 23 % (10-50); Mean Corpuscular HGB Conc 33.6 g/dl (31.0-37.0); Mean Corpuscular Hemoglobin 31.1 pg (25.0-35.0); Mean Corpuscular Volume 92 fL (80-100); Monocytes # (Auto) 0.3 Thou/mm3 (0.0-0.8); Monocytes % (Auto) 8 % (0-12); Neutrophils # (Auto) 2.7 Thou/mm3 (1.8-7.7); Neutrophils % (Auto) 68 % (37-80); Nucleated Red Blood Cell % 0 /100 WBC (0); Platelet Count 95 Thou/mm3 (140-440); RDW Standard Deviation 46.2 fL (36.4-46.3); White Blood Count 3.9 Thou/mm3 (3.6-11.0)
[2025-02-13 19:39] LABS: Bilirubin,Urine Negative (Negative); Blood,Urine 1+ (Negative); Clarity,Urine Clear (Clear/Hazy); Color,Urine Lt-Yellow (Lt Yel-Yel); Glucose, Urine Negative (Negative); Ketones,Urine Negative (Negative); Leukocyte Esterase,Urine Positive (Negative); Nitrite,Urine Negative (Negative); Protein,Urine Negative (Neg - Trace); RBC,Urine 5 /hpf (0-3); Specific Gravity,Urine 1.012 (1.001-1.035); Squamous Epithelial Cell,Urine 1 /hpf (0-5); Urobilinogen,Urine Negative mg/dL (0.0-1.0); WBC,Urine 4 /hpf (0-5)
[2025-02-13 19:53] LABS: Alanine Aminotransferase 12 U/L (10-49); Albumin, Serum 4.1 gm/dL (3.4-4.8); Albumin/Globulin Ratio 1.5 (1.2-2.2); Alkaline Phosphatase 128 U/L (46-116); Anion Gap 8 (7-16); Aspartate Amino Transferase 24 U/L (0-34); BUN/Creatinine Ratio 16 Ratio (12-20); Bilirubin,Total 1.3 mg/dL (0.3-1.2); Blood Urea Nitrogen 19 mg/dL (9-23); Carbon Dioxide 28.9 mMol/L (20.0-31.0); Chloride 101 mMol/L (98-107); Creatinine (Component) 1.2 mg/dL (0.6-1.3); Globulin 2.8 gm/dL (2.3-3.5); Glucose 145 mg/dL (74-106); Magnesium 2.2 mg/dL (1.6-2.6); Osmolality,Calculated 280 (275-295); Potassium 3.6 mMol/L (3.4-5.1); Sodium 138 mMol/L (136-145); Total Protein 6.9 gm/dL (5.7-8.2); Troponin I 0.024 ng/mL (0.0-0.045); eGFR 48 See Note
[2025-02-13 19:56] LABS: B-Type Natriuretic Peptide 1481 pg/mL (0-100)
[2025-02-14 00:58] VITALS: BP 106/64; PULSE 82; RESP 17; TEMP 36.6; O2SAT 98
--- NOTE | 2025-02-14 01:32 | PD.EDWEAK ---
ED Weakness RME/HPI General Chief complaint: Weakness Stated complaint: WEAKNESS, WITH LOW BP; HX PACEMAKER Arrival date/time: 02/13/25 17:51 RME / HPI RME / HPI Narrative: 02/13/25 17:51 74F with history afib on Eliquis, HFrEF EF 30 to 35% (January 2025) w/ Diastolic Dysfunction, sick sinus syndrome s/p pacemaker placement presents to ED with 1 day of generalized weakness, SOB, and sensations of panic attack and dying. ------ Dr. West?s Main ED Evaluation: 74yo female with a history of CHF, aFib, sick sinus syndrome s/p pacemaker presents to the ED for complaints of fatigue and palpitations. Patient states she's been having intermittent palpitations for the last one day, reporting she felt tired and anxious, so he came in for evaluation. Patient denies any chest pain, shortness of breath, fever, chills or any other associated symptoms. Patient is on a variety of medications, including digoxin, midodrine, and Eliquis, all of which she is compliant with. Related Data Home Medications ?Medication ?Instructions ?Recorded ?Confirmed apixaban 5 mg tablet (Eliquis) 5 mg PO Q12H 01/18/25 01/18/25 benzonatate 200 mg capsule 200 mg PO BID 01/18/25 01/18/25 digoxin 125 mcg (0.125 mg) tablet 0.125 mg PO DAILY 01/18/25 01/18/25 gabapentin 100 mg capsule 100 mg PO .QHS 01/18/25 01/18/25 sacubitril 24 mg-valsartan 26 mg 1 tab PO BID 01/18/25 01/18/25 tablet (Entresto) Held on 01/24/25. Instructions: Hold Entresto until you follow up with refuse collector Previous Rx's ?Medication ?Instructions ?Recorded albuterol sulfate 90 mcg/actuation 2 inh inhalation Q4H PRN shortness 07/10/24 aerosol inhaler of breath or wheezing #8.5 grams acetaminophen 500 mg tablet 500 mg PO Q8HR PRN pain 7 days #0 01/24/25 tabs Allergies Allergy/AdvReac Type Severity Reaction Status Date / Time Penicillins Allergy Severe Rash Verified 02/13/25 17:54 codeine AdvReac Severe Abdominal Verified 02/13/25 17:54 Pain Review of Systems Review of Systems Systems Reviewed: All systems reviewed, normal except as documented Past Medical History Past Medical History NEUROLOGIC: Negative Neurological Disorders or Seizures CARDIAC: Positive Cardiac Disorders, Cardiac Arrhythmia, Atrial Fibrillation, Congestive Heart Failure, Edema and Varicose Veins; Negative Cellulitis or Hypertension RESPIRATORY: Positive Pneumonia; Negative Chronic Obstructive Pulmonary Disease (COPD), Asthma, Tuberculosis or Sleep Apnea GASTROINTESTINAL: Positive Gastrointestinal Disorders, Gall Bladder Disease, Colorectal Cancer, Hiatal Hernia and Obesity; Negative Hepatitis GENITOURINARY: Positive Inguinal Hernia; Negative Genitourinary Disorders or Renal Disease REPRODUCTIVE: Positive Previous Pregnancies MUSCULOSKELETAL: Positive Musculoskeletal Disorders and Arthritis; Negative Gout, Scoliosis, Fibromyalgia or Fractures ENT: Positive Cataracts ENDOCRINE: Negative Endocrine Disorders, Diabetes Mellitus Type 1 or Diabetes Mellitus Type 2 HEMATOLOGIC: Negative Blood Disorders or Sickle Cell Disease OTHER HISTORY: Positive Cancer and Colorectal Cancer; Negative Hospitalization, Autoimmune Disease, Shingles, Falls, Blood Transfusions, Blood Transfusion Reaction, Anesthesia Reactions, Chemotherapy, Radiation Therapy, MRSA, Chicken Pox, Measles or Mumps Family History FAMILY HISTORY: Positive Family Surgery; Negative Family Psychiatric Problems, Family Respiratory Disorders, Family Cardiac Disorders, Family Gastrointestinal Problems, Family Cancer or Family Anesthesia Reaction Surgical History SURGICAL: Positive Cardiac Surgery, Pacemaker, Abdominal Surgery, Tubal Ligation and Section Social History SMOKING STATUS: Never smoker SECOND HAND EXPOSURE: No SUBSTANCE USE: does not use ED Exam Narrative Physical exam: GENERAL APPEARANCE: alert and oriented x 4, well-developed, well-nourished, no acute distress VITALS: All vitals were reviewed and the pulse ox is 98% on room air, which is normal according to my interpretation. HEENT: Normocephalic, atraumatic; pupils equal, round, reactive to light; EOMI; mucous membranes pink, moist; oropharynx clear NECK: Supple LUNGS: CTABL; no wheezes, no rales, no rhonchi HEART: Regular rate, regular rhythm; normal S1, S2; no murmurs ABDOMEN: non distended; normal BS; soft, no tenderness, no guarding, no rebound; no masses, no organomegaly, no hernia BACK: no CVA tenderness EXTREMITIES: atraumatic; no edema NEUROLOGIC: awake; alert and oriented x4; cranial nerves II-XII grossly intact; no focal sensory or motor deficits PSYCHIATRIC: appropriate mood and affect SKIN: warm, dry, normal color; no rashes Course Course Course Narrative: CXR is ordered for determining the etiology of palpitations. Quality Measures none Orders Category Date Time Status Blood glucose [Bedside Blood Glucose] NOW Care 02/13/25 18:13 Active EKG (ED ONLY) *Do not use* NOW Care 02/13/25 18:13 Completed EKG (ED Only) Stat Exams 02/13/25 18:13 Draft XR chest 1V portable Stat Exams 02/13/25 18:30 Completed B-Type Natriuretic Peptide Stat Lab 02/13/25 18:42 Completed CBC Stat Lab 02/13/25 18:42 Completed Comprehensive Metabolic Panel Stat Lab 02/13/25 18:42 Completed Magnesium Stat Lab 02/13/25 18:42 Completed Troponin I Stat Lab 02/13/25 18:42 Completed Urinalysis Stat Lab 02/13/25 18:33 Completed Vital Signs Vital signs: Vital Signs Temperature 98.3 F 02/13/25 18:16 Pulse Rate 94 02/13/25 18:16 Respiratory Rate 16 02/13/25 18:16 Blood Pressure 101/70 02/13/25 18:16 Pulse Oximetry (%) 97 02/13/25 18:16 Oxygen Delivery Method Room Air 02/13/25 18:16 Weakness MDM Narrative MDM Narrative:: Scribe Attestation: 02/14/25 Dana Slaughter am scribing for and in the presence of Dr. West. Patient data External records reviewed:: [facility] previous records (Per chart review, patient was admitted here on 01/18/25 for acute on chronic systolic heart failure.) Clinical information provided by:: patient Social determinants that could affect healthcare access:: none Patient has the following chronic illnesses:: CHF, aFib, sick sinus syndrome status post pacemaker placement How is presenting disease/condition affected by chronic disease/condition?: exacerbated by Evaluation data The following diagnostics were reviewed and interpreted by me:: lab results, radiology exam(s) and EKG tracing(s) Lab and/or radiology exams considered but not ordered:: none Interpretation Summary: WBC count is normal, Troponin is normal, BNP is 1481 (which is chronic), UA is unremarkable, according to my interpretation. CXR shows cardiomegaly, dual chamber pacemaker, no infiltrates, according to my interpretation. EKG done at 1824, NSR, rate of 93, demand pacemaker, good sensing, good capture, according to my interpretation. Medications / Prescriptions Medications or Prescriptions considered but not ordered:: none Medication administrations:: none Consultations Consultation(s) initiated? (list below): No Diagnosis Weakness Differential Diagnosis: other (aFib, anxiety, anxiety reaction, pneumonia) Most likely diagnosis given after review of the tests above:: see clinical impression below Admission Indicated Admission indicated?: not indicated Admission Request Was there a request for admission?: No Disposition Plan Disposition Plan: Discharge Discharge Attestation Discharge Attestation: The patient and all family members were given an opportunity to ask questions and understood the discharge instructions. Discharge instructions specifically effects, indications for sooner follow up or return to the emergency department, and the expected course of current diagnosis. Patient condition: Stable Discharge Plan Plan Patient Disposition: HOME (Self Care) Disposition Comment: Stable for discharge home Patient condition on transfer: Stable Prescriptions/Referrals Prescriptions/Med Rec: No Action benzonatate 200 mg capsule 200 mg PO BID Eliquis 5 mg tablet 5 mg PO Q12H Patient Comments: TAKE 1 TABLET BY MOUTH TWICE DAILY digoxin 125 mcg (0.125 mg) tablet 0.125 mg PO DAILY Patient Comments: TAKE 1 TABLET BY MOUTH ONCE DAILY gabapentin 100 mg capsule 100 mg PO .QHS Entresto 24-26 mg tablet 1 tab PO BID acetaminophen 500 mg tablet 500 mg PO Q8HR PRN (Reason: pain) 7 Days Qty: 0 0RF albuterol sulfate 90 mcg/actuation HFA aerosol inhaler 2 inh inhalation Q4H PRN (Reason: shortness of breath or wheezing) Qty: 8.5 0RF Referrals: Hardik Gloria MD [Primary Care Provider] - In 1 week Problem List Clinical Impression: Heart palpitations Patient/Caregiver Discharge Instructions Discharge Activity: activity as tolerated Education Materials: Your Heart's Electrical System, Understanding Heart Palpitations, ED Palpitations Additional Instructions: Please return to the emergency department if you have any worsening or any further medical problems and we can help you. Otherwise you should follow-up with your primary care doctor and with your refuse collector within the next several days Print Language: Cook Islander Stand Alone Forms: Erin Award Info., Patient Portal Info Letter
== END 2025-02-14 01:54 | disposition home or self-care (01) ==
PROVIDERS: Physician Assistant; Emergency Provider Emergency Medicine; PCP Family Medicine
DX: R00.2 Palpitations (principal); I50.9 Heart failure, unspecified; I48.91 Unspecified atrial fibrillation; Z95.0 Presence of cardiac pacemaker
CPT/HCPCS: 36415; 71045; 80053; 81001; 83735; 83880; 84484; 85025; 93005; 99283